=== PATIENT | female | born 1930 | race Caucasian/White ===

== ENCOUNTER 2017-11-25 15:26 | Inpatient (IN) | payer MEDICARE, BC ==
[2017-11-25 16:03] LABS: Bilirubin Negative (Negative); Blood, Urine Negative (Negative); Clarity CLEAR (Clear); Glucose, Urine (Dipstick) Negative (Negative); Leukocyte Trace (Negative); Nitrite Negative (Negative); Protein, Urine (Dipstick) Negative (Neg-Trace); Specific Gravity, Urine 1.014 (1.002-1.036); Urobilinogen 0.2 mg/dL (0.2-1.0); pH, Urine 5.5 (5.0-9.0)
[2017-11-25 16:07] LABS: Bacteria/HPF None Seen HPF (None Seen); Hyaline Casts/LPF 0-3 HYALINE CAST LPF (0-3 Hyaline); Pathc Cast-AUWi Flag 0.29 (0-2.49); RBC/HPF 0-3 HPF (0-3); Squamous Epithelial None Seen HPF (0-3); WBC/HPF 0-3 HPF (0-3)
[2017-11-25 16:16] LABS: #Basophils 0.1 thou/uL (0.0-0.2); #Eosinphils 0.3 thou/uL (0.0-0.7); #Lymphocytes 2.2 thou/uL (1.20-3.40); #Monocytes 0.4 thou/uL (0.11-0.59); #Neutrophils 2.6 thou/uL (1.40-6.50); %Eosinophils 5.1 % (0.0-10.0); %Lymphocytes 39.7 % (21.0-51.0); %Monocytes 7.3 % (0.0-10.0); Hemoglobin 9.4 g/dL (12.0-16.0); Mean Corpuscular HGB CONC 32.5 g/dL (32.0-36.0); Mean Corpuscular Hemoglobin 32.7 pg (27.0-31.0); Platelet Count 126 thou/uL (130-400); RBC Distribution Width 14.8 % (11.5-14.5); Red Blood Cell (RBC) Count 2.87 mill/uL (4.20-5.40); White Blood Cell (WBC) Count 5.6 thou/uL (4.8-10.8)
[2017-11-25 16:35] LABS: ALT (SGPT) 14 U/L (8-55); AST (SGOT) 17 U/L (5-34); Albumin 3.9 g/dL (3.4-4.8); Alkaline Phosphatase 55 U/L (40-150); Anion Gap 11 mmol/L (10-20); BUN (Urea Nitrogen) 29 mg/dL (9.8-20.1); Bilirubin, Total 0.3 mg/dL (0.2-1.2); Calc. Creatinine Clearance 0 mL/min (70-130); Calcium 9.4 mg/dL (7.8-10.44); Carbon Dioxide 22 mmol/L (23-31); Chloride 106 mmol/L (98-107); Estimated GFR-MDRD 65; Globulin 2.9 g/dL (2.4-3.5); Glucose 161 mg/dL (83-110); Potassium 3.9 mmol/L (3.5-5.1); Protein, Total 6.8 g/dL (6.0-8.3); Sodium 135 mmol/L (136-145)
[2017-11-25 16:40] LABS: CKMB 2.4 ng/mL (0-6.6); Troponin I 0.026 ng/mL (< 0.028)
--- NOTE | 2017-11-25 21:46 | RAD ---
ONE VIEW CHEST: HISTORY: Dyspnea. COMPARISON: 09/29/2015 FINDINGS: Portable upright chest shows atherosclerosis of the aorta and an enlarged cardiac silhouette. The pu lmonary vessels are within normal limits. There are patchy interstitial and alveolar opacities. The lungs are hyperinflated. No significant pleural effusion. No pneumothorax. IMPRESSION: 1. Patchy interstitial and alveolar opacities, suggesting multifocal infiltrate. 2. Atherosclerosis of the aorta. POS: PPP
[2017-11-25] MEDS ORDERED: cloNIDine 0.1 MG TAB ONE (22:08)
[2017-11-25 22:25] LABS: Troponin I 0.026 ng/mL (< 0.028)
[2017-11-25] MEDS ORDERED: Ondansetron HCl/PF 4 MG/2 ML Vial IVP PRN (22:36)
[2017-11-25] MEDS ORDERED: Milk Of Magnesia 30 ML UDCUP PO PRN (22:36)
[2017-11-25] MEDS ORDERED: Guaifenesin DM 100-10/5 ML UDCUP PO PRN (22:36)
[2017-11-25] MEDS ORDERED: Albuterol Sulfate 2.5 mg/3 ml Neb NEB PRN (22:39)
[2017-11-25] MEDS ORDERED: Azithromycin 500 MG VIAL ONE (22:44)
[2017-11-25] MEDS ORDERED: HumaLOG 300 UNITS/3 ML VIAL SC PRN (23:09)
[2017-11-25] MEDS ORDERED: Dextrose 5% in Water 1,000 ML IV PRN (23:09)
[2017-11-25] MEDS ORDERED: Dextrose 50% Abboject 50 ML SYRINGE SLOW IVP PRN (23:09)
[2017-11-25] MEDS ORDERED: hydrALAZINE 20 MG/ML VIAL SLOW IVP PRN (23:11)
[2017-11-25] MEDS ORDERED: Labetalol HCl 100 MG/20 ML VIAL SLOW IVP PRN (23:11)
[2017-11-25] MEDS ORDERED: Furosemide 40 MG/4 ML VIAL ONE (23:13)
[2017-11-26] MEDS ORDERED: Lorazepam 2 MG/ML VIAL ONE (00:03)
[2017-11-26] MEDS ORDERED: Cefepime 2 GM/10 ML SYR ONE (00:38)
[2017-11-26 03:07] VITALS: BMI 28.8
[2017-11-26] MEDS: HYDROcodone/Acetaminophen 5/325 mg Tablet PO PRN ×4 (03:21→21:46)
[2017-11-26 05:24] LABS: #Eosinphils 0.1 thou/uL (0.0-0.7); #Lymphocytes 1.5 thou/uL (1.20-3.40); #Monocytes 0.6 thou/uL (0.11-0.59); #Neutrophils 9.4 thou/uL (1.40-6.50); %Basophils 0.3 % (0.0-1.0); %Eosinophils 0.5 % (0.0-10.0); %Lymphocytes 13.2 % (21.0-51.0); %Monocytes 5.5 % (0.0-10.0); %Neutrophils 80.5 % (42.0-75.0); Hemoglobin 11.1 g/dL (12.0-16.0); Mean Corpuscular Hemoglobin 32.1 pg (27.0-31.0); Mean Corpuscular Volume 97.1 fl (81.0-99.0); Mean Platelet Volume 8.3 fL (7.4-10.4); Platelet Count 157 thou/uL (130-400); RBC Distribution Width 14.9 % (11.5-14.5); Red Blood Cell (RBC) Count 3.47 mill/uL (4.20-5.40); White Blood Cell (WBC) Count 11.6 thou/uL (4.8-10.8)
[2017-11-26 05:25] LABS: Anion Gap 12 mmol/L (10-20); BUN (Urea Nitrogen) 24 mg/dL (9.8-20.1); Calc. Creatinine Clearance 62 mL/min (70-130); Calcium 9.3 mg/dL (7.8-10.44); Carbon Dioxide 25 mmol/L (23-31); Chloride 105 mmol/L (98-107); Estimated GFR-MDRD 75; Glucose 144 mg/dL (83-110); Potassium 3.6 mmol/L (3.5-5.1); Sodium 138 mmol/L (136-145)
[2017-11-26] MEDS: Furosemide 40 MG/4 ML VIAL SLOW IVP SCH ×2 (06:16→15:44)
--- NOTE | 2017-11-26 07:00 | PDOC.EVN ---
Event Note - Event Note Event Note: pATIENT ADMITTED TO ccu FOR acute hypoxic respiratory failure. Initial critical care time 35 minutes. For more details, please refer to H and P/.
[2017-11-26] MEDS ORDERED: Non-Formulary Item 1 EACH (Biotin [Biotin] 1,000 MCG) PO SCH (09:00)
[2017-11-26] MEDS ORDERED: cloNIDine 0.1 MG TAB PO SCH (09:00)
[2017-11-26] MEDS ORDERED: Atenolol 50 MG TAB PO SCH (09:00)
[2017-11-26] MEDS: Famotidine 20 MG TAB PO SCH ×2 (09:33→20:43)
[2017-11-26] MEDS: Docusate 100 MG CAP PO SCH ×2 (09:33→20:43)
[2017-11-26] MEDS: Aspirin 325 MG TAB PO SCH (09:46)
[2017-11-26] MEDS: Losartan 25 MG TAB PO SCH ×2 (09:46→20:44)
[2017-11-26] MEDS: Isosorbide Dinitrate 5 MG TAB PO SCH ×2 (09:47→20:44)
[2017-11-26] MEDS: Folic Acid 1 MG TAB PO SCH ×2 (09:48→20:44)
[2017-11-26] MEDS: Cyanocobalamin (Vitamin B-12) 1,000 MCG TAB PO SCH (09:48)
[2017-11-26] MEDS: metFORMIN 500 MG TAB PO SCH ×2 (09:48→18:13)
[2017-11-26] MEDS: Hydroxychloroquine Sulfate 200 MG TAB PO SCH ×2 (10:13→20:45)
--- NOTE | 2017-11-26 11:33 | CON ---
DATE OF CONSULTATION: 11/26/2017 REASON FOR CONSULTATION: Acute respiratory failure, related to congestive heart failure. HISTORY OF PRESENT ILLNESS: The patient is an 87-year-old female, who was admitted last night with acute respiratory failure, related to cardiogenic pulmonary edema. According to the notes from the ER, she had been experiencing fatigue and weakness for about 1 week. PAST MEDICAL HISTORY: 1. Type 2 diabetes mellitus. 2. Hypertension. 3. Congestive heart failure, systolic with EF documented about 45% back [place] [address] Chauhan. 4. Arthritis. 5. Hypothyroidism. 6. Coronary artery disease. 7. Gastroesophageal reflux. 8. Rheumatoid arthritis. 9. Glaucoma. 10. Esophageal stricture. PAST SURGICAL HISTORY: Cholecystectomy, eye surgery, cardiac catheterization, appendectomy, hysterectomy, x2, EGD, colonoscopy, esophageal dilatation, rectocele repair. ALLERGIES: IODINE. SOCIAL HISTORY: Lives in a longterm. Does not smoke. Does not consume alcohol. FAMILY MEDICAL HISTORY: Remarkable for coronary artery disease, prostate cancer , liver disease. MEDICATIONS: Prior to admission, clonidine 0.1 mg b.i.d., pramipexole 0.25 mg every evening, isosorbide dinitrate 10 mg b.i.d., vitamin B12 500 mcg daily, aspirin 325 mg daily, Lasix 40 mg daily, Zocor 20 mg nightly, losartan 50 mg twice daily, hydroxychloroquine 200 mg b.i.d., metformin 500 mg b.i.d., atenolol 25 mg daily, folate 1 mg b.i.d., methotrexate 15 mg every 7 days, Biotin 1000 mcg daily, cholecalciferol 5000 mg daily. REVIEW OF SYSTEMS: Otherwise negative. PHYSICAL EXAMINATION: VITAL SIGNS: Temperature 98.5, pulse 72, blood pressure 159/52, O2 sat 95%, respiratory rate in the high 20s and low 30s. GENERAL: She is awake, alert. Took the BiPAP off; she seems to be breathing comfortably. HEENT EXAM: Pupils react. Sclerae icteric. Oropharynx clear. NECK: No JVD. LUNGS: A few crackles in both bases. CARDIAC: S1 and S2 regular, no murmur. ABDOMEN: Soft, nontender, nondistended. EXTREMITIES: No clubbing, cyanosis, or edema. LABORATORY DATA: White blood cell count 11.6, hematocrit 33.7, platelet count 157. Sodium 130, potassium 3.6, chloride 105, CO2 of 25, BUN 24, creatinine 0.7 , glucose 144. BNP 852. Chest x-ray showed perihilar edema, small pleural effusions and confluence of flow. ASSESSMENT: 1. Congestive heart failure - likely acute systolic. 2. Acute respiratory failure, requiring mechanical ventilation. 3. Hypertension. PLAN: 1. I would discontinue her antibiotics as this does not appear to be pneumonia. 2. Restart her antihypertensive therapy. 3. Try to hold BiPAP. 4. Continue diuresis. 5. May be able to transfer out of the CCU by early this afternoon. 70 min. time was spent on this patient. Of that time, >50% was spent with the patient and/or on the patients hospital unit [facility]
--- NOTE | 2017-11-26 14:15 | HP ---
PRIMARY CARE PHYSICIAN: Cesilia Crystal M.D. PRESENTING COMPLAINT: Shortness of breath. HISTORY OF PRESENT ILLNESS: Ms. Guadalupe Garcia is an 87-year-old female with a past medical history of rheumatoid arthritis, diabetes mellitus, hypertension , chronic anemia, hyperlipidemia, CHF, hypothyroidism and basal cell carcinoma, status post excision, who presented to the emergency room with a 1-week history of malaise, dizziness, cough, and marked shortness of breath. She said her symptoms have progressively gotten worse and decided to come to the hospital today due to persistence of the shortness of breath. She has no sputum production. She denies fever or chills, chest pain. She has no abdominal or urinary symptoms. At the emergency room, her oxygen saturations were in the mid 80s and she was started on oxygen supplementation, which improved her O2 saturation to about 92%. Her labs showed normal WBC, but showed thrombocytopenia of 126. Serum chemistry was largely unremarkable. Lactic acid was 1.9. Initial troponin was 0.026. BNP was 852, markedly increased from BNP taken in 02/2017, which was 238. Urinalysis was unremarkable. EKG shows no signs of acute ischemia. Chest x-ray showed patchy interstitial and alveolar opacities suggesting multifocal infiltrates, also showed atherosclerosis of the aorta. She was then diagnosed with community-acquired pneumonia in the emergency room and started on azithromycin. PAST MEDICAL HISTORY: As stated in the HPI. PAST SURGICAL HISTORY: Basal cell carcinoma removal. FAMILY HISTORY: Reviewed and noncontributory. SOCIAL HISTORY: Does not smoke cigarettes, drink alcohol or use illicit drugs. ALLERGIES: IODINE CONTRAST. CODE STATUS: Family reports that advanced documentation in home and they would like to defer code status until they go home to get the documents. HOME MEDICATIONS: Reviewed. REVIEW OF SYSTEMS: A 12-point review of systems conducted and negative except as stated in HPI. PHYSICAL EXAMINATION: VITAL SIGNS: Blood pressure 166/62, pulse rate 53, respiratory rate 18, temperature 98.1, oxygen saturation 94% on 2 liters of oxygen. GENERAL: Not in acute distress, lying comfortably in bed. HEENT: Normocephalic, atraumatic. Not pale, anicteric. Moist mucous membranes. PERRLA. EOMI. NECK: Supple, no JVD. Full range of movement. RESPIRATORY: Shows coarse breath sounds bilaterally with reduced air entry in bilateral lung carrasco. No wheezes are appreciated. CARDIOVASCULAR: S1, S2 only. Regular rate and rhythm. No murmurs, rubs or gallops. ABDOMEN: Soft, nontender, nondistended. Hernia appreciated with no signs of obstruction or strangulation. Bowel sounds normoactive. No hepatosplenomegaly. MUSCULOSKELETAL: No edema. Full range of movements of all extremities. NEUROLOGIC: Alert and well oriented. No focal deficits. SKIN: Warm, dry, well perfused. Varicose veins, bilateral lower extremities. PSYCHIATRIC: Normal mood and affect. LABORATORY DATA: Significant labs are stated in HPI. IMAGING: Chest x-ray: Multifocal infiltrates, bilateral lungs. EKG: No signs of acute ischemia, shows complete left bundle branch block. ASSESSMENT AND PLAN: 1. Community-acquired pneumonia with possible acute respiratory failure. The patient has been started on oxygen supplementation. Blood cultures have been collected. We will start on IV levofloxacin and monitor oxygen saturations closely as well as vital signs. 2. Congestive heart failure. Unclear if she has diastolic or systolic heart failure. She does not seem to be in florid exacerbation for now, but we will give one dose of IV furosemide tonight and monitor response in the a.m. She might benefit from a TTE while in the hospital. 3. Hypothyroidism. We will resume home medication when confirmed. 4. Diabetes mellitus: Controlled. We will place on sliding scale insulin, diabetic diet, fingerstick glucose before meals and at bedtime, and hypoglycemia protocol. 5. Rheumatoid arthritis, stable, not in acute flare. We will resume home medications. 6. Hyperlipidemia. We will resume home medication. 7. Chronic anemia. We will monitor and transfuse for hemoglobin less than 7. We will also trend troponin and place her on p.r.n. IV hydralazine and labetalol , nebulizer therapies. 8. Thrombocytopenia. No signs of active bleeding. We will avoid heparin based products and placed on sequential compression devices while in hospital. DORINDA
--- NOTE | 2017-11-26 16:13 | PDOC.PN ---
- Subjective Encounter Start Date: 11/26/17 Encounter Start Time: 15:55 Subjective: f/u for acute resp failure due to CHF. Feeling much better today and no SOB -: Diuresing with IV Lasix. No new complaints. - Objective MAR Reviewed: Yes Vital Signs & Weight: Vital Signs (12 hours) Temp Pulse Resp BP Pulse Ox 11/26/17 15:00 98.7 F 11/26/17 12:00 98.9 F 11/26/17 09:48 65 11/26/17 09:46 126/51 L 11/26/17 08:57 96 11/26/17 08:00 97.9 F 65 20 100 Weight Weight 162 lb 14.746 oz Most Recent Monitor Data Heart Rate from ECG 63 NIBP 125/39 NIBP BP-Mean 53 Respiration from ECG 24 SpO2 100 I&O: 11/25/17 11/26/17 11/27/17 06:59 06:59 06:59 Intake Total 360 Output Total 500 601 Balance -500 -241 Result Diagrams: 11/26/17 04:25 11/26/17 04:25 Additional Labs: Accuchecks 11/26/17 11:29 POC Glucose 203 H Microbiology 11/25/17 22:18 Venous blood - Right Arm Blood Culture - Preliminary Specimen has been received and culture in progress. No Growth to date. 11/25/17 22:18 Venous blood - Left Arm Blood Culture - Preliminary Specimen has been received and culture in progress. No Growth to date. Laboratory Tests 11/25/17 11/25/17 11/25/17 16:02 21:52 21:52 WBC 5.6 Hgb 9.4 L Lactic Acid 1.9 B-Natriuretic Peptide 852.8 H 11/26/17 04:25 WBC Hgb Lactic Acid B-Natriuretic Peptide 1397.4 H Radiology Reviewed by me: Yes (PCXR - bilat pulm edema) EKG Reviewed by me: Yes (Tele - SR) Phys Exam - Physical Examination Constitutional: NAD HEENT: PERRLA, oral pharynx no lesions Neck: no nodes, no JVD, supple basilar crackles Respiratory: no wheezing, no rhonchi Cardiovascular: RRR, no significant murmur Gastrointestinal: soft, non-tender, no distention, positive bowel sounds mild edema of bilat LE's Musculoskeletal: pulses present, edema present Neurological: non-focal, normal sensation, moves all 4 limbs Psychiatric: normal affect, A&O x 3 Skin: normal turgor, cap refill <2 seconds Dx/Plan (1) Acute respiratory failure with hypoxia Code(s): J96.01 - ACUTE RESPIRATORY FAILURE WITH HYPOXIA Status: Acute Comment: s/p BiPAP NIMV, continue O2 via NC, wean off O2 as clinically tolerated (2) Acute exacerbation of CHF (congestive heart failure) Code(s): I50.9 - HEART FAILURE, UNSPECIFIED Status: Acute Qualifiers: Heart failure type: unspecified Qualified Code(s): I50.9 - Heart failure, unspecified Comment: Continue Lasix 40mg IV q12h, 2D echo pending to ascertain EF (3) DM II (diabetes mellitus, type II), controlled Code(s): E11.9 - TYPE 2 DIABETES MELLITUS WITHOUT COMPLICATIONS Status: Chronic Comment: Continue Metformin daily, ISS, ADA (4) Macrocytic anemia Code(s): D53.9 - NUTRITIONAL ANEMIA, UNSPECIFIED Status: Chronic Comment: Stable currently, continue serial monitoring, no evidence of acute blood loss - Plan plan discussed w/ family, PT/OT, public health social worker, out of bed/ambulate Stable currently -: Continue Lasix 40mg IV q12h -: 2D Echo pending -: Continue ASA 325mg daily -: Continue Lipitor 10mg HS * AM lab: BMP, CBC * Transfer to Telemetry
[2017-11-26] MEDS ORDERED: Furosemide 20 MG/2 ML VIAL SLOW IVP SCH (19:30)
[2017-11-26] MEDS: Atorvastatin Calcium 10 MG TAB PO SCH (20:43)
[2017-11-26] MEDS: Pramipexole Di-HCl 0.25 MG TAB PO SCH (20:44)
[2017-11-26] MEDS: cloNIDine 0.1 MG TAB PO SCH (20:58)
--- NOTE | 2017-11-27 00:49 | CON ---
DATE OF CONSULTATION: 11/26/2017 PRIMARY DRILLER AND REAMER: Dr. Edgardo Chauhan. REASON FOR CONSULTATION: Congestive heart failure, systolic, acute on chronic. HISTORY OF PRESENT ILLNESS: Ms. Garcia is a very pleasant 87-year-old woman, patient of Dr. Edgardo pompa. She has a long history of congestive heart failure. She came to the hospital last night with di fficulty breathing and was found to be in congestive heart failure. [facility] The patient is feeling somewhat better now, but still was not breathing normally. The patient did have indeterminate troponin level as well as a high BNP. Chest x-ray shows congestive heart failure. PAST MEDICAL HISTORY: History of hypertensive heart disease, history of congestive heart failure, mi nimal coronary artery disease with previous catheterization. SOCIAL HISTORY: No alcohol, tobacco, or smoking. ALLERGIES: IODINE. HOME MEDICATIONS: Include, 1. Isosorbide. 2. Furosemide. 3. Losartan. 4. Metformin. 5. Atenolol 25 mg a day. 6. Biotin. 7. Aspirin. 8. Clonidine. REVIEW OF SYSTEMS: Constitutional: No significant weight gain or loss. Vision: No changes. Heari ng: No changes. Pulmonary: Positive for shortness of breath. Cardiac: No chest pain. Gastrointe stinal: There is no nausea, vomiting, diarrhea. Skin: No rashes. Neurologic: No unilateral weakn ess or numbness. Psychiatric: No unusual depression or anxiety. Hematologic: No unusual bruising. Genitourinary: No burning with urination. PHYSICAL EXAMINATION: GENERAL: This is a pleasant elderly woman, states she is still not breathing normally. VITAL SIGNS: Blood pressure is 135/42, pulse 61 regular. EYES: Sclerae nonicteric. MOUTH: Mucous membranes moist. NECK: Supple, no lymphadenopathy. LUNGS: Bibasilar rales. CARDIOVASCULAR: Normal S1, normal S2. I do not hear murmur, rub, or gallop. ABDOMEN: Soft, nontender. EXTREMITIES: No clubbing or cyanosis. There is mild peripheral edema. SKIN: Warm and dry. PERTINENT LABORATORY AND X-RAY FINDINGS: Hemoglobin is 11.1. BNP 1397. Potassium is 3.6. Troponin 0.026. Chest x-ray shows increased interstitial markings compatible with congestive heart f ailure. Echocardiogram ejection fraction of 25%-30%. ASSESSMENT: 1. Congestive heart failure, systolic, acute on chronic. 2. Relatively low heart rate. 3. EKG revealed a left bundle branch block. PLAN: 1. We will change from atenolol to carvedilol. 2. Could consider biventricular pacing which may increase left ventricular function. 3. We will give an extra dose of Lasix tonight. 4. We will reduce clonidine that is likely reducing the heart rate and I believe the beta-cristy do se could be maximized. It is right now, we cannot give much beta-cristy due to low heart rate. Dr. Chauhan resume patient's care tomorrow.
[2017-11-27 04:32] LABS: #Lymphocytes 1.9 thou/uL (1.20-3.40); #Neutrophils 5.4 thou/uL (1.40-6.50); %Basophils 0.4 % (0.0-1.0); %Eosinophils 0.4 % (0.0-10.0); %Lymphocytes 22.9 % (21.0-51.0); %Monocytes 11.3 % (0.0-10.0); %Neutrophils 64.9 % (42.0-75.0); Hemoglobin 9.5 g/dL (12.0-16.0); Mean Corpuscular HGB CONC 32.8 g/dL (32.0-36.0); Mean Corpuscular Volume 97.4 fl (81.0-99.0); Mean Platelet Volume 8.1 fL (7.4-10.4); Platelet Count 120 thou/uL (130-400); RBC Distribution Width 15.1 % (11.5-14.5); Red Blood Cell (RBC) Count 2.98 mill/uL (4.20-5.40); White Blood Cell (WBC) Count 8.3 thou/uL (4.8-10.8)
[2017-11-27 04:53] LABS: Anion Gap 13 mmol/L (10-20); BUN (Urea Nitrogen) 27 mg/dL (9.8-20.1); Calc. Creatinine Clearance 47 mL/min (70-130); Calcium 8.6 mg/dL (7.8-10.44); Carbon Dioxide 25 mmol/L (23-31); Chloride 104 mmol/L (98-107); Estimated GFR-MDRD 55; Glucose 138 mg/dL (83-110); Potassium 3.3 mmol/L (3.5-5.1); Sodium 139 mmol/L (136-145)
[2017-11-27 05:00] LABS: Troponin I 0.382 ng/mL (< 0.028)
[2017-11-27] MEDS: Furosemide 40 MG/4 ML VIAL SLOW IVP SCH (06:40)
[2017-11-27] MEDS: Acetaminophen 325 MG TAB PO PRN ×2 (10:15→14:17)
[2017-11-27] MEDS: Enoxaparin Sodium 80 MG/0.8 ML SYRINGE SC SCH ×2 (10:23→20:16)
[2017-11-27] MEDS: cloNIDine 0.1 MG TAB PO SCH ×2 (10:24→20:18)
[2017-11-27] MEDS: Losartan 25 MG TAB PO SCH ×2 (10:25→20:19)
[2017-11-27] MEDS: Hydroxychloroquine Sulfate 200 MG TAB PO SCH ×2 (10:26→20:17)
[2017-11-27] MEDS: metFORMIN 500 MG TAB PO SCH ×2 (10:27→17:17)
[2017-11-27] MEDS: Isosorbide Dinitrate 5 MG TAB PO SCH ×2 (10:27→21:28)
[2017-11-27] MEDS: Cyanocobalamin (Vitamin B-12) 1,000 MCG TAB PO SCH (10:27)
[2017-11-27] MEDS: Carvedilol 3.125 MG TAB PO SCH ×2 (10:27→17:17)
[2017-11-27] MEDS: Aspirin 325 MG TAB PO SCH (10:28)
[2017-11-27] MEDS: Docusate 100 MG CAP PO SCH ×2 (10:28→20:21)
[2017-11-27] MEDS: Folic Acid 1 MG TAB PO SCH ×2 (10:28→20:17)
[2017-11-27] MEDS: Famotidine 20 MG TAB PO SCH ×2 (10:29→20:17)
--- NOTE | 2017-11-27 11:59 | PRG ---
DATE OF SERVICE: 11/27/2017 SUBJECTIVE: The patient is complaining of a cough. Otherwise, feels better. PHYSICAL EXAMINATION: VITAL SIGNS: Temperature 98.6, pulse 74, blood pressure 172/64, O2 sat 95%, respiratory rate 16. HEENT: Unremarkable. NECK: No adenopathy or JVD. CHEST: Clear. CARDIAC: S1 and S2 regular. ABDOMEN: Soft. EXTREMITIES: No edema. ASSESSMENT: 1. Congestive heart failure. 2. Low heart rate. 3. Status post acute respiratory failure, which required BiPAP. 4. EF 25%-30% on echo. PLAN: 1. She needs to get up in a chair. 2. Robitussin as needed for cough. 3. Continue diuresis. 4. Further input per Cardiology.
--- NOTE | 2017-11-27 12:26 | PDOC.PN ---
- Subjective Encounter Start Date: 11/27/17 Encounter Start Time: 12:20 Subjective: f/u for acute CHF and resp failure currently on O2 NC and Lasix IV -: Feels better overall and less SOB, some residual dry cough. Feels weak -: and not getting out of bed. - Objective MAR Reviewed: Yes Vital Signs & Weight: Vital Signs (12 hours) Temp Pulse Resp BP BP Pulse Ox 11/27/17 11:38 98.7 F 61 18 139/68 94 L 11/27/17 10:24 172/64 H 11/27/17 08:00 98.6 F 74 16 172/64 H 95 Weight Weight 158 lb 11.725 oz Most Recent Monitor Data Heart Rate from ECG 54 NIBP 116/30 NIBP BP-Mean 61 Respiration from ECG 23 SpO2 100 I&O: 11/26/17 11/27/17 11/28/17 06:59 06:59 06:59 Intake Total 600 Output Total 500 606 Balance -500 -6 Result Diagrams: 11/27/17 04:23 11/27/17 04:23 Additional Labs: Accuchecks 11/26/17 11/26/17 21:04 17:08 POC Glucose 149 H 158 H Microbiology 11/25/17 22:18 Venous blood - Right Arm Blood Culture - Preliminary Specimen has been received and culture in progress. No Growth to date. 11/25/17 22:18 Venous blood - Left Arm Blood Culture - Preliminary Specimen has been received and culture in progress. No Growth to date. Laboratory Tests 11/25/17 11/25/17 11/25/17 16:02 16:02 21:52 WBC 5.6 Hgb 9.4 L Lactic Acid Troponin I 0.026 0.026 B-Natriuretic Peptide 11/25/17 11/25/17 11/26/17 21:52 21:52 04:25 WBC Hgb Lactic Acid 1.9 Troponin I B-Natriuretic Peptide 852.8 H 1397.4 H 11/27/17 04:23 WBC Hgb Lactic Acid Troponin I 0.382 H* B-Natriuretic Peptide Radiology Reviewed by me: Yes (2D echo - EF 25-30%, mod TR, diast dysfxn) EKG Reviewed by me: Yes (Tele - SR in 80's, short run A-fib) Phys Exam - Physical Examination Constitutional: NAD alert, talkative HEENT: PERRLA, oral pharynx no lesions Neck: no JVD, supple bibasilar crackles, diminished in bases Respiratory: no wheezing, no rales I/ DEDRA in RUSB Cardiovascular: RRR Gastrointestinal: soft, non-tender, no distention, positive bowel sounds mild LE edema Musculoskeletal: pulses present Neurological: non-focal, normal sensation, moves all 4 limbs Psychiatric: A&O x 3 Skin: no rash, normal turgor, cap refill <2 seconds Dx/Plan (1) Acute respiratory failure with hypoxia Code(s): J96.01 - ACUTE RESPIRATORY FAILURE WITH HYPOXIA Status: Acute Comment: s/p BiPAP NIMV, continue O2 via NC, wean off O2 as clinically tolerated , overall improved (2) Acute exacerbation of CHF (congestive heart failure) Code(s): I50.9 - HEART FAILURE, UNSPECIFIED Status: Acute Qualifiers: Heart failure type: unspecified Qualified Code(s): I50.9 - Heart failure, unspecified Comment: Continue Lasix 40mg IV daily, EF 25%, ? AICD or pacer vs palliative measures, family leaning toward palliative options (3) DM II (diabetes mellitus, type II), controlled Code(s): E11.9 - TYPE 2 DIABETES MELLITUS WITHOUT COMPLICATIONS Status: Chronic Comment: Continue Metformin daily, ISS, ADA (4) Macrocytic anemia Code(s): D53.9 - NUTRITIONAL ANEMIA, UNSPECIFIED Status: Chronic Comment: Stable currently, continue serial monitoring, no evidence of acute blood loss (5) Hypokalemia Code(s): E87.6 - HYPOKALEMIA Status: Acute Comment: KCL 40meq po BID, repeat K+ level in am - Plan plan discussed w/ family, PT/OT, 7th grade social studies teacher, out of bed/ambulate, DVT proph w/SCDs Stable overall -: Continue ASA and Coreg -: Await Cardiology to discuss options regaring PM/AICD, family leaning toward -: Palliative measures -: PT for mobilization * Decrease Lasix 40mg IV daily * D/C Lovenox in 24h * Wean O2 as clincally tolerated * AM lab: BMP
[2017-11-27] MEDS ORDERED: Potassium Chloride 20 MEQ TAB PO SCH ×2 (12:45→13:00)
--- NOTE | 2017-11-27 14:51 | PDOC.CTH ---
<Naima Meredith - Last Filed: 11/27/17 15:21> Cardiology Progress Note - Subjective The pt seen and examined. No overnight events. No cardiac complaints. She has dry cough - Objective Vital Signs Temp Pulse Resp BP BP Pulse Ox 11/27/17 11:38 98.7 F 61 18 139/68 94 L 11/27/17 10:24 172/64 H 11/27/17 08:25 98.7 F 61 18 95 11/27/17 08:00 98.6 F 74 16 172/64 H 95 Weight 158 lb 11.725 oz 11/26/17 11/27/17 11/28/17 06:59 06:59 06:59 Intake Total 600 390 Output Total 500 606 Balance -500 -6 390 - Physical Examination General/Neuro: alert & oriented x3 Neck: no JVD present Lungs: CTA (diminished at bases) Heart: other: (irregular) Abdomen: soft Extremities: other: (No edema) - Labs Result Diagrams: 11/27/17 04:23 11/27/17 04:23 Troponin/CKMB CK-MB (CK-2) 2.4 ng/mL (0-6.6) 11/25/17 16:02 Troponin I 0.382 ng/mL (< 0.028) H* 11/27/17 04:23 - Assessment/Plan 1. New onset Afib - Afib with HR 50-60s. On Coreg and Lovenox BID. 2. Acute on chronic systolic HF - Echo on 11/26/17 showed EF 25-30% (55% in 2016), mild-mod LAE, mild MR, mild AR, mild-mod TR, and mod elevated PAP. Improving with Lasix IV, Losartan. 3. Acute resp. failure - stable with 2LNC; managed by PCP and general machinist 4. HTN - stable 5. mild CAD - stable; cont. to monitor on tele MAR reviewed Review of Systems - Review of Systems Constitutional: reports: no symptoms reported EENTM: reports: no symptoms reported Respiratory: reports: no symptoms reported Cardiac (ROS): reports: no symptoms reported ABD/GI: reports: no symptoms reported : reports: no symptoms reported Musculoskeletal: reports: no symptoms reported <Taran Chauhan - Last Filed: 11/27/17 15:51> Cardiology Progress Note - Objective Vital Signs Temp Pulse Pulse Pulse Resp BP BP 11/27/17 15:09 65 61 137/56 L 11/27/17 11:38 98.7 F 61 18 11/27/17 10:24 172/64 H 11/27/17 08:25 98.7 F 61 18 11/27/17 08:00 98.6 F 74 16 BP BP Pulse Ox Pulse Ox Pulse Ox 11/27/17 15:09 149/62 H 97 96 11/27/17 11:38 139/68 94 L 11/27/17 10:24 11/27/17 08:25 95 11/27/17 08:00 172/64 H 95 Weight 158 lb 11.725 oz 11/26/17 11/27/17 11/28/17 06:59 06:59 06:59 Intake Total 600 390 Output Total 500 606 Balance -500 -6 390 - Labs Result Diagrams: 11/27/17 04:23 11/27/17 04:23 Troponin/CKMB CK-MB (CK-2) 2.4 ng/mL (0-6.6) 11/25/17 16:02 Troponin I 0.382 ng/mL (< 0.028) H* 11/27/17 04:23 - Assessment/Plan pt. seen and eval. by me. New onset acute on chronic systolic CHF. EF significantly decreased from prior echo. She has developed atrial fibrillation and this may also have contributed to the volume overload and CHF. She has been receiving Cimzia for her arthritis.She did have some swelling after the injections and this may also have been a contributing factor. At this time I would give OAC,s and control the heart rate. Continue diuretics. I agree with the A/P by the GRINDING OPERATOR. Chest clear. Irreg/irreg. rhythm. No edema.
[2017-11-27] MEDS: Potassium Chloride 20 MEQ TAB PO SCH (17:16)
[2017-11-27] MEDS: Pramipexole Di-HCl 0.25 MG TAB PO SCH (20:18)
[2017-11-27] MEDS: Atorvastatin Calcium 10 MG TAB PO SCH (20:18)
[2017-11-28] MEDS: Acetaminophen 325 MG TAB PO PRN ×2 (00:02→08:37)
[2017-11-28 07:57] LABS: Anion Gap 10 mmol/L (10-20); BUN (Urea Nitrogen) 28 mg/dL (9.8-20.1); Calc. Creatinine Clearance 56 mL/min (70-130); Calcium 8.5 mg/dL (7.8-10.44); Carbon Dioxide 24 mmol/L (23-31); Chloride 107 mmol/L (98-107); Estimated GFR-MDRD 69; Glucose 102 mg/dL (83-110); Sodium 137 mmol/L (136-145)
[2017-11-28] MEDS: Enoxaparin Sodium 80 MG/0.8 ML SYRINGE SC SCH (08:34)
[2017-11-28] MEDS: Hydroxychloroquine Sulfate 200 MG TAB PO SCH ×2 (08:35→21:21)
[2017-11-28] MEDS: Isosorbide Dinitrate 5 MG TAB PO SCH ×2 (08:36→21:20)
[2017-11-28] MEDS: Famotidine 20 MG TAB PO SCH ×2 (08:36→21:21)
[2017-11-28] MEDS: Docusate 100 MG CAP PO SCH ×2 (08:37→21:21)
[2017-11-28] MEDS: Folic Acid 1 MG TAB PO SCH ×2 (08:38→21:21)
[2017-11-28] MEDS: metFORMIN 500 MG TAB PO SCH ×2 (08:38→17:07)
[2017-11-28] MEDS: Potassium Chloride 20 MEQ TAB PO SCH ×2 (08:38→17:07)
[2017-11-28] MEDS: cloNIDine 0.1 MG TAB PO SCH ×2 (08:38→21:20)
[2017-11-28] MEDS: Losartan 25 MG TAB PO SCH ×2 (08:39→21:21)
[2017-11-28] MEDS: Carvedilol 3.125 MG TAB PO SCH ×2 (08:40→17:07)
[2017-11-28] MEDS: Cyanocobalamin (Vitamin B-12) 1,000 MCG TAB PO SCH (08:40)
[2017-11-28] MEDS ORDERED: Furosemide 40 MG/4 ML VIAL SLOW IVP SCH (09:00)
--- NOTE | 2017-11-28 09:09 | PRG ---
DATE OF SERVICE: 11/28/2017 This patient is doing better. She is sitting up today. She said she walked some yesterday. PHYSICAL EXAMINATION: VITAL SIGNS: Temperature 98.6 with a T-max of 100.1, pulse 64, blood pressure 135/63, O2 sat 98% on 2 liters. HEENT: Unremarkable. NECK: No JVD. LUNGS: Clear without wheezing. CARDIOVASCULAR: S1, S2 regular. ABDOMEN: Soft. EXTREMITIES: No edema. LABORATORY DATA: No labs were done today. ASSESSMENT: 1. Congestive heart failure. 2. Status post acute respiratory failure related to that. 3. Low heart rate. 4. EF 25-30%. PLAN: 1. Discontinue oxygen. 2. I have noticed that she is on high dose anticoagulation. This was started by the Hospitalist. I do not see a clearcut indication for that unless there is something that I am missing. 3. No further pulmonary recommendations.
--- NOTE | 2017-11-28 13:39 | PDOC.CTH ---
<Naima Meredith - Last Filed: 11/28/17 13:34> Cardiology Progress Note - Subjective The pt seen and examined. No overnight events. No cardiac complaints. She coughs every time she drinks and eats. She stated she has long hx of Benign esophageal stricture and s/p Esophageal dilation a few years ago. She walked around the unit with PTs w/o difficulties. - Objective Vital Signs Temp Pulse Resp BP BP Pulse Ox 11/28/17 12:00 97.4 F L 54 L 18 127/53 L 96 11/28/17 08:38 135/63 11/28/17 08:00 98.6 F 64 18 135/63 98 Weight 158 lb 11.725 oz 11/27/17 11/28/17 11/29/17 06:59 06:59 06:59 Intake Total 600 390 Output Total 606 Balance -6 390 - Physical Examination General/Neuro: alert & oriented x3 Neck: no JVD present Lungs: CTA Heart: other: (irregular) Abdomen: soft Extremities: other: (No edema) - Telemetry Telemetry Rhythm: Afib HR 50-60s - Labs Result Diagrams: 11/27/17 04:23 11/28/17 06:30 Troponin/CKMB CK-MB (CK-2) 2.4 ng/mL (0-6.6) 11/25/17 16:02 Troponin I 0.382 ng/mL (< 0.028) H* 11/27/17 04:23 - Assessment/Plan 1. New onset Afib - Afib with HR 50-60s. On Coreg. Changed Lovenox BID to Eliquis 5mg BID. 2. Acute on chronic systolic HF - Echo on 11/26/17 showed EF 25-30% (55% in 2016), mild-mod LAE, mild MR, mild AR, mild-mod TR, and mod elevated PAP. stable with Lasix IV, bblocker, and Losartan. Change Lasix from IV to Po daily. The pt will d/c with LifeVest. 3. Acute resp. failure - stable with 2LNC; managed by PCP and heading maker 4. HTN - stable 5. mild CAD - stable; cont. to monitor on tele 6. Hx of Benign esophageal stricture and s/p Esophageal dilation a few years ago - instructed to sit up straight for eating and drinking. Need Speech eval? MAR reviewed * EF significantly decreased from prior echo. She has developed atrial fibrillation and this may also have contributed to the volume overload and CHF. She has been receiving Cimzia for her arthritis.She did have some swelling after the injections and this may also have been a contributing factor. * The pt will be d/[facility] home with LifeVest and Echo within 1 month. Per the pt and family, the pt refused AICD placement at this time. Review of Systems - Review of Systems Constitutional: reports: no symptoms reported EENTM: reports: no symptoms reported Respiratory: reports: no symptoms reported Cardiac (ROS): reports: no symptoms reported ABD/GI: reports: no symptoms reported : reports: no symptoms reported <Taran Chauhan - Last Filed: 11/28/17 15:57> Cardiology Progress Note - Objective Vital Signs Temp Pulse Resp BP BP Pulse Ox 11/28/17 12:00 97.4 F L 54 L 18 127/53 L 96 11/28/17 08:38 135/63 11/28/17 08:00 98.6 F 64 18 135/63 98 Weight 158 lb 11.725 oz 11/27/17 11/28/17 11/29/17 06:59 06:59 06:59 Intake Total 600 390 Output Total 606 Balance -6 390 - Labs Result Diagrams: 11/27/17 04:23 11/28/17 06:30 Troponin/CKMB CK-MB (CK-2) 2.4 ng/mL (0-6.6) 11/25/17 16:02 Troponin I 0.382 ng/mL (< 0.028) H* 11/27/17 04:23 - Assessment/Plan pt. seen and eval. by me. i agree with the A/P by the ANY COMMODITY BUYER. Repeat echo in 4-6 weeks. Continue medications for CHF. Continue OAC.
--- NOTE | 2017-11-28 14:34 | PDOC.PN ---
- Subjective Encounter Start Date: 11/28/17 Encounter Start Time: 14:32 Subjective: feels much better. working w CR w/o SOB -: care discussed w son at bedside - Objective MAR Reviewed: Yes Vital Signs & Weight: Vital Signs (12 hours) Temp Pulse Resp BP BP Pulse Ox 11/28/17 12:00 97.4 F L 54 L 18 127/53 L 96 11/28/17 08:38 135/63 11/28/17 08:00 98.6 F 64 18 135/63 98 Weight Weight 158 lb 11.725 oz Most Recent Monitor Data Heart Rate from ECG 54 NIBP 116/30 NIBP BP-Mean 61 Respiration from ECG 23 SpO2 100 I&O: 11/27/17 11/28/17 11/29/17 06:59 06:59 06:59 Intake Total 600 390 Output Total 606 Balance -6 390 Result Diagrams: 11/27/17 04:23 11/28/17 06:30 Additional Labs: Accuchecks 11/28/17 11/28/17 11/27/17 11:15 05:54 20:52 POC Glucose 140 H 103 176 H 11/27/17 11/27/17 17:36 15:07 POC Glucose 141 H 122 H Microbiology 11/25/17 22:18 Venous blood - Right Arm Blood Culture - Preliminary NO GROWTH AT 48 HOURS 11/25/17 22:18 Venous blood - Left Arm Blood Culture - Preliminary NO GROWTH AT 48 HOURS Laboratory Tests 11/25/17 11/26/17 11/27/17 16:02 04:25 04:23 Hgb 9.4 L 11.1 L 9.5 L Plt Count 126 L 157 120 L Phys Exam - Physical Examination Constitutional: NAD sitting up in bed HEENT: PERRLA, moist MMs, sclera anicteric, oral pharynx no lesions, 2+ tonsils Neck: no JVD Respiratory: no wheezing, no rales, no rhonchi, clear to auscultation bilateral Cardiovascular: irregular Gastrointestinal: soft, non-tender, no distention, positive bowel sounds Musculoskeletal: no edema, pulses present Neurological: non-focal, normal sensation, moves all 4 limbs Psychiatric: normal affect, A&O x 3 Skin: no rash Dx/Plan (1) New onset a-fib Code(s): I48.91 - UNSPECIFIED ATRIAL FIBRILLATION Status: Acute Comment: Rate controlled on Coreg.On Anticoagulation per cardiology (2) Acute exacerbation of CHF (congestive heart failure) Code(s): I50.9 - HEART FAILURE, UNSPECIFIED Status: Acute Qualifiers: Heart failure type: unspecified Qualified Code(s): I50.9 - Heart failure, unspecified Comment: on Lasix 40mg IV daily, EF 25%, ? AICD or pacer vs palliative measures , family leaning toward palliative options (3) Acute respiratory failure with hypoxia Code(s): J96.01 - ACUTE RESPIRATORY FAILURE WITH HYPOXIA Status: Acute Comment: s/p BiPAP NIMV, continue O2 via NC, wean off O2 as clinically tolerated , overall improved (4) Hypokalemia Code(s): E87.6 - HYPOKALEMIA Status: Resolved Comment: KCL 40meq po BID, repeat K+ level in am (5) Cardiomyopathy Code(s): I42.9 - CARDIOMYOPATHY, UNSPECIFIED Status: Chronic Comment: New diagnosis. Will need LifeVest per cardiology.Refusing AICD (6) DM II (diabetes mellitus, type II), controlled Code(s): E11.9 - TYPE 2 DIABETES MELLITUS WITHOUT COMPLICATIONS Status: Chronic Comment: Continue Metformin daily, ISS, ADA (7) Macrocytic anemia Code(s): D53.9 - NUTRITIONAL ANEMIA, UNSPECIFIED Status: Chronic Comment: Stable currently, continue serial monitoring, no evidence of acute blood loss - Plan plan discussed w/ family, PT/OT, respiratory therapy, incentive spirometry, out of bed/ambulate, DVT proph w/SCDs Changed to PO lasix and PO A per cardiology.appreciate input. -: wean off O2 as tolearted.PCCM following-appreciate input. -: continue CR. Family wants HH Vs OP rehab .declining SNIF etc -: monitor labs in am.jovan CANELA home tomorrow if lifeVest set up done * . Review of Systems - Review of Systems Constitutional: weakness. negative: fever, chills, sweats, malaise, other ENT: negative: Ear Pain, Ear Discharge, Nose Pain, Nose Discharge, Nose Congestion, Mouth Pain, Mouth Swelling, Throat Pain, Throat Swelling, Other Respiratory: Cough, SOB with Excertion. negative: Dry, Shortness of Breath, Hemoptysis, Pleuritic Pain, Sputum, Wheezing Cardiovascular: negative: chest pain, palpitations, orthopnea, paroxysmal nocturnal dyspnea, edema, light headedness, other Gastrointestinal: negative: Nausea, Vomiting, Abdominal Pain, Diarrhea, Constipation, Melena, Hematochezia, Other Genitourinary: negative: Dysuria, Frequency, Incontinence, Hematuria, Retention , Other Musculoskeletal: negative: Neck Pain, Shoulder Pain, Arm Pain, Back Pain, Hand Pain, Leg Pain, Foot Pain, Other Skin: negative: Rash, Lesions, Jewel, Bruising, Other Neurological: negative: Weakness, Numbness, Incoordination, Change in Speech, Confusion, Seizures, Other - Medications/Allergies Allergies/Adverse Reactions: Allergies Allergy/AdvReac Type Severity Reaction Status Date / Time iodine Allergy Verified 11/26/17 06:15 Medications: Current Medications Acetaminophen (Tylenol) 650 mg PO Q4H PRN PRN Reason: Headache/Fever or Pain Last Admin: 11/28/17 08:37 Dose: 650 mg Hydrocodone Bitart/Acetaminophen ([place] 5/325) 1 tab PO Q4H PRN PRN Reason: Moderate Pain (4-6) Last Admin: 11/26/17 21:46 Dose: 1 tab Albuterol Sulfate (Ventolin) 2.5 mg NEB [id number] PRN PRN Reason: SOB &/or Wheezing Apixaban (Eliquis) 5 mg PO BID [facility] Aspirin (Aspirin Chewable) 81 mg PO DAILY [facility] Last Admin: 11/28/17 08:39 Dose: 81 mg Atorvastatin Calcium (Lipitor) 10 mg PO QPM [facility] Last Admin: 11/27/17 20:18 Dose: 10 mg Carvedilol (Coreg) 3.125 mg PO BID-[facility] Last Admin: 11/28/17 08:40 Dose: 3.125 mg Cholecalciferol (Vitamin D3) 5,000 units PO DAILY [facility] Last Admin: 11/28/17 08:37 Dose: 5,000 units Clonidine (Catapres) 0.05 mg PO BID [facility] Last Admin: 11/28/17 08:38 Dose: 0.05 mg Cyanocobalamin (Vitamin B-12) 500 mcg PO DAILY [facility] Last Admin: 11/28/17 08:40 Dose: 500 mcg Dextrose/Water (Dextrose 50%) 25 gm SLOW IVP PRN PRN PRN Reason: Hypoglycemia Docusate Sodium (Colace) 100 mg PO BID [facility] Last Admin: 11/28/17 08:37 Dose: 100 mg Famotidine (Pepcid) 20 mg PO BID [facility] Last Admin: 11/28/17 08:36 Dose: 20 mg Folic Acid (Folvite) 1 mg PO BID [facility] Last Admin: 11/28/17 08:38 Dose: 1 mg Furosemide (Lasix) 40 mg PO DAILY-[facility] Glucagon (Glucagon) 1 mg IM PRN PRN PRN Reason: Hypoglycemia Guaifenesin/Dextromethorphan (Robitussin Dm) 15 ml PO Q4H PRN PRN Reason: Cough Hydralazine HCl (Apresoline) 10 mg SLOW IVP Q4H PRN PRN Reason: Hypertension Hydroxychloroquine Sulfate (Plaquenil) 200 mg PO BID [facility] Last Admin: 11/28/17 08:35 Dose: 200 mg Dextrose/Water (D5w) 1,000 mls @ 0 mls/hr IV .Q0M PRN; As Directed PRN Reason: Hypoglycemia Insulin Human Lispro (Humalog) 0 units SC .MILD SLIDING SCALE PRN PRN Reason: Mild Correctional Scale Last Admin: 11/26/17 18:10 Dose: 2 unit Isosorbide Dinitrate (Isordil) 10 mg PO BID [facility] Last Admin: 11/28/17 08:36 Dose: 10 mg Labetalol HCl (Normodyne) 10 mg SLOW IVP Q4H PRN PRN Reason: SBP Greater Than 180 Lactulose (Lactulose) 20 gm PO DAILYPRN PRN PRN Reason: Constipation Losartan Potassium (Cozaar) 50 mg PO BID [facility] Last Admin: 11/28/17 08:39 Dose: 50 mg Magnesium Hydroxide (Milk Of Magnesium) 30 ml PO DAILYPRN PRN PRN Reason: Constipation Last Admin: 11/26/17 10:05 Dose: 30 ml [facility] Last Admin: 11/28/17 08:38 Dose: 500 mg Ondansetron HCl (Zofran) 4 mg IVP Q6H PRN PRN Reason: Nausea/Vomiting Potassium Chloride (K-Dur) 40 meq PO BID-[facility] Last Admin: 11/28/17 08:38 Dose: 40 meq Pramipexole Dihydrochloride (Mirapex) 0.25 mg PO QPM [facility] Last Admin: 11/27/17 20:18 Dose: 0.25 mg Sodium Chloride (Flush - Normal Saline) 10 ml IVF Q12HR [facility] Last Admin: 11/28/17 08:40 Dose: 10 ml Sodium Chloride (Flush - Normal Saline) 10 ml IVF PRN PRN PRN Reason: Saline Flush
[2017-11-28] MEDS ORDERED: Methotrexate Sodium 2.5 MG TAB PO SCH (15:00)
[2017-11-28] MEDS: Apixaban 5 MG TAB PO SCH (21:21)
[2017-11-28] MEDS: Atorvastatin Calcium 10 MG TAB PO SCH (21:21)
[2017-11-28] MEDS: Pramipexole Di-HCl 0.25 MG TAB PO SCH (21:21)
[2017-11-29 06:33] LABS: Anion Gap 11 mmol/L (10-20); BUN (Urea Nitrogen) 26 mg/dL (9.8-20.1); Calc. Creatinine Clearance 55 mL/min (70-130); Calcium 8.8 mg/dL (7.8-10.44); Carbon Dioxide 23 mmol/L (23-31); Chloride 106 mmol/L (98-107); Estimated GFR-MDRD 70; Glucose 86 mg/dL (83-110); Potassium 4.9 mmol/L (3.5-5.1); Sodium 135 mmol/L (136-145)
--- NOTE | 2017-11-29 10:14 | PDOC.CTH ---
<Naima Meredith - Last Filed: 11/29/17 12:04> Cardiology Progress Note - Subjective The pt seen and examined. No overnight events. No cardiac complaints. She walked longer today with PTs; however, per PTs, she had to stop several times today for rest. Per family, she did not sleep at all last night. The pt wishes her code status to be DNR. After long conversation about DNR and LifeVest, she would like to think about d/c home with LifeVest at this moment. - Objective Vital Signs Temp Pulse Resp BP Pulse Ox 11/29/17 08:00 97.7 F 62 16 138/75 100 11/29/17 04:00 98.7 F 52 L 18 114/64 97 11/29/17 00:00 98.9 F 54 L 32 H 131/62 99 Weight 155 lb 4.8 oz 11/28/17 11/29/17 11/30/17 06:59 06:59 06:59 Intake Total 390 Balance 390 - Physical Examination General/Neuro: alert & oriented x3 Neck: no JVD present Lungs: CTA (diminished at bases) Heart: RRR Extremities: other: (No edema) - Telemetry Telemetry Rhythm: [id number] - Labs Result Diagrams: 11/27/17 04:23 11/29/17 05:53 Troponin/CKMB CK-MB (CK-2) 2.4 ng/mL (0-6.6) 11/25/17 16:02 Troponin I 0.382 ng/mL (< 0.028) H* 11/27/17 04:23 - Assessment/Plan 1. New onset Afib - Converted back to SR with HR 50-60s. On Coreg and Eliquis 5mg BID; stop ASA 81mg daily. 2. Acute on chronic systolic HF - Echo on 11/26/17 showed EF 25-30% (55% in 2016), mild-mod LAE, mild MR, mild AR, mild-mod TR, and mod elevated PAP. stable with Lasix IV, bblocker, and Losartan. Change Lasix from IV to Po daily. The pt is waiting for LifeVest at this moment. 3. Acute resp. failure - She was on RA until last night when she was uncomfortable sleeping due to SOB; on 2LNC now; managed by PCP and laboratory mechanic helper 4. HTN - stable 5. mild CAD - stable; cont. to monitor on tele 6. Hx of Benign esophageal stricture and s/p Esophageal dilation a few years ago - instructed to sit up straight for eating and drinking. Coughing after drinking and eating this AM worsen then yesterday. Oder Speech eval today. MAR reviewed * EF significantly decreased from prior echo. She has developed atrial fibrillation and this may also have contributed to the volume overload and CHF. She has been receiving Cimzia for her arthritis.She did have some swelling after the injections and this may also have been a contributing factor. * The pt will be d/[facility] home with LifeVest and Echo within 1 month. Per the pt and family, the pt refused AICD placement at this time. Review of Systems - Review of Systems Constitutional: reports: weakness EENTM: reports: no symptoms reported Respiratory: reports: SOB at rest Cardiac (ROS): reports: no symptoms reported ABD/GI: reports: no symptoms reported : reports: no symptoms reported <Taran Chauhan - Last Filed: 11/29/17 16:07> Cardiology Progress Note - Objective Vital Signs Temp Pulse Pulse Pulse Resp BP BP 11/29/17 16:01 98.4 F 58 L 16 11/29/17 11:58 97.9 F 62 14 11/29/17 09:25 53 L 56 L 174/90 H 140/63 11/29/17 08:00 97.7 F 62 16 BP Pulse Ox Pulse Ox Pulse Ox 11/29/17 16:01 153/92 H 98 11/29/17 11:58 165/65 H 97 11/29/17 09:25 99 99 11/29/17 08:00 138/75 100 Weight 155 lb 4.8 oz 11/28/17 11/29/17 11/30/17 06:59 06:59 06:59 Intake Total 390 Balance 390 - Labs Result Diagrams: 11/27/17 04:23 11/29/17 05:53 Troponin/CKMB CK-MB (CK-2) 2.4 ng/mL (0-6.6) 11/25/17 16:02 Troponin I 0.382 ng/mL (< 0.028) H* 11/27/17 04:23 - Assessment/Plan pt. seen and eval. by me. I had a long discussion with the pt. and family. She is agreeable for the life-Vest. I will see her back in a month in the office and repeat the echo to see if the EF has improved. i agree with the A/P by the INSTITUTIONAL RESEARCH DIRECTOR.
[2017-11-29] MEDS: Isosorbide Dinitrate 5 MG TAB PO SCH ×2 (12:04→22:04)
[2017-11-29] MEDS: Potassium Chloride 20 MEQ TAB PO SCH ×2 (12:04→16:10)
[2017-11-29] MEDS: Folic Acid 1 MG TAB PO SCH ×2 (12:05→21:59)
[2017-11-29] MEDS: Cyanocobalamin (Vitamin B-12) 1,000 MCG TAB PO SCH (12:06)
[2017-11-29] MEDS: Hydroxychloroquine Sulfate 200 MG TAB PO SCH ×2 (12:06→21:59)
[2017-11-29] MEDS: Famotidine 20 MG TAB PO SCH ×2 (12:07→21:57)
[2017-11-29] MEDS: metFORMIN 500 MG TAB PO SCH ×2 (12:07→16:10)
[2017-11-29] MEDS: Docusate 100 MG CAP PO SCH ×2 (12:07→21:59)
[2017-11-29] MEDS: Losartan 25 MG TAB PO SCH ×2 (12:07→22:00)
[2017-11-29] MEDS: Apixaban 5 MG TAB PO SCH ×2 (12:08→21:59)
[2017-11-29] MEDS: Carvedilol 3.125 MG TAB PO SCH ×2 (12:08→16:10)
[2017-11-29] MEDS ORDERED: Furosemide 40 MG TAB PO SCH (12:45)
[2017-11-29] MEDS: Acetaminophen 325 MG TAB PO PRN (13:22)
--- NOTE | 2017-11-29 14:04 | PDOC.PN ---
- Subjective Encounter Start Date: 11/29/17 Encounter Start Time: 14:03 Subjective: feels tired.didnt sleep well last night -: Worked w PT but got SOB -: c/o easy [place]O & orthopnea today - Objective Vital Signs & Weight: Vital Signs (12 hours) Temp Pulse Pulse Pulse Resp BP BP 11/29/17 11:58 97.9 F 62 14 11/29/17 09:25 53 L 56 L 174/90 H 140/63 11/29/17 08:00 97.7 F 62 16 11/29/17 04:00 98.7 F 52 L 18 BP Pulse Ox Pulse Ox Pulse Ox 11/29/17 11:58 165/65 H 97 11/29/17 09:25 99 99 11/29/17 08:00 138/75 100 11/29/17 04:00 114/64 97 Weight Weight 155 lb 4.8 oz Most Recent Monitor Data Heart Rate from ECG 54 NIBP 116/30 NIBP BP-Mean 61 Respiration from ECG 23 SpO2 100 I&O: 11/28/17 11/29/17 11/30/17 06:59 06:59 06:59 Intake Total 390 Balance 390 Result Diagrams: 11/27/17 04:23 11/29/17 05:53 Additional Labs: Accuchecks 11/29/17 11/29/17 11/28/17 10:57 05:45 20:58 POC Glucose 125 H 97 105 11/28/17 16:52 POC Glucose 93 Microbiology 11/25/17 22:18 Venous blood - Right Arm Blood Culture - Preliminary NO GROWTH AT 48 HOURS 11/25/17 22:18 Venous blood - Left Arm Blood Culture - Preliminary NO GROWTH AT 48 HOURS Phys Exam - Physical Examination Constitutional: NAD HEENT: PERRLA, moist MMs, sclera anicteric, oral pharynx no lesions Neck: no JVD Respiratory: no wheezing, no rhonchi bibasilar crackles Cardiovascular: RRR, no significant murmur Gastrointestinal: soft, non-tender, no distention, positive bowel sounds Musculoskeletal: no edema, pulses present Neurological: non-focal, normal sensation, moves all 4 limbs Psychiatric: normal affect, A&O x 3 Skin: no rash Dx/Plan (1) New onset a-fib Code(s): I48.91 - UNSPECIFIED ATRIAL FIBRILLATION Status: Acute Comment: Rate controlled on Coreg.On Anticoagulation per cardiology (2) Acute exacerbation of CHF (congestive heart failure) Code(s): I50.9 - HEART FAILURE, UNSPECIFIED Status: Acute Qualifiers: Heart failure type: unspecified Qualified Code(s): I50.9 - Heart failure, unspecified Comment: on Lasix 40mg IV daily, EF 25%, ? AICD or pacer vs palliative measures , family leaning toward palliative options (3) Acute respiratory failure with hypoxia Code(s): J96.01 - ACUTE RESPIRATORY FAILURE WITH HYPOXIA Status: Acute Comment: s/p BiPAP NIMV, continue O2 via NC, wean off O2 as clinically tolerated , overall improved (4) Hypokalemia Code(s): E87.6 - HYPOKALEMIA Status: Resolved Comment: KCL 40meq po BID, repeat K+ level in am (5) Cardiomyopathy Code(s): I42.9 - CARDIOMYOPATHY, UNSPECIFIED Status: Chronic Comment: New diagnosis. Will need LifeVest per cardiology.Refusing AICD (6) DM II (diabetes mellitus, type II), controlled Code(s): E11.9 - TYPE 2 DIABETES MELLITUS WITHOUT COMPLICATIONS Status: Chronic Comment: Continue Metformin daily, ISS, ADA (7) Macrocytic anemia Code(s): D53.9 - NUTRITIONAL ANEMIA, UNSPECIFIED Status: Chronic Comment: Stable currently, continue serial monitoring, no evidence of acute blood loss - Plan plan discussed w/ family, PT/OT, respiratory therapy, incentive spirometry, out of bed/ambulate, DVT proph w/SCDs C/O cough w eating.will get [employer] eval.h/o esophageal stricture w OP work up -: Pt waiting for lifevest per Cardiology -: cont meds as below. -: will try 1 additional dose of IV lasix for increased Orthopnea & O2 require -: DC when off of O2 & LifeVest set up w HH * . Review of Systems - Review of Systems Constitutional: weakness, malaise. negative: fever, chills, sweats, other Eyes: negative: Pain, Vision Change, Conjunctivae Inflammation, Eyelid Inflammation, Redness, Other ENT: negative: Ear Pain, Ear Discharge, Nose Pain, Nose Discharge, Nose Congestion, Mouth Pain, Mouth Swelling, Throat Pain, Throat Swelling, Other Respiratory: SOB with Excertion Cardiovascular: orthopnea. negative: chest pain, palpitations, paroxysmal nocturnal dyspnea, edema, light headedness, other Gastrointestinal: negative: Nausea, Vomiting, Abdominal Pain, Diarrhea, Constipation, Melena, Hematochezia, Other Genitourinary: negative: Dysuria, Frequency, Incontinence, Hematuria, Retention , Other Musculoskeletal: negative: Neck Pain, Shoulder Pain, Arm Pain, Back Pain, Hand Pain, Leg Pain, Foot Pain, Other Skin: negative: Rash, Lesions, Jewel, Bruising, Other Neurological: negative: Weakness, Numbness, Incoordination, Change in Speech, Confusion, Seizures, Other - Medications/Allergies Allergies/Adverse Reactions: Allergies Allergy/AdvReac Type Severity Reaction Status Date / Time iodine Allergy Verified 11/26/17 06:15 Medications: Current Medications Acetaminophen (Tylenol) 650 mg PO Q4H PRN PRN Reason: Headache/Fever or Pain Last Admin: 11/29/17 13:22 Dose: 650 mg Hydrocodone Bitart/Acetaminophen ([place] 5/325) 1 tab PO Q4H PRN PRN Reason: Moderate Pain (4-6) Last Admin: 11/26/17 21:46 Dose: 1 tab Albuterol Sulfate (Ventolin) 2.5 mg NEB [id number] PRN PRN Reason: SOB &/or Wheezing Apixaban (Eliquis) 5 mg PO BID [facility] Last Admin: 11/29/17 12:08 Dose: 5 mg Atorvastatin Calcium (Lipitor) 10 mg PO QPM [facility] Last Admin: 11/28/17 21:21 Dose: 10 mg Carvedilol (Coreg) 3.125 mg PO BID-[facility] Last Admin: 11/29/17 12:08 Dose: 3.125 mg Cholecalciferol (Vitamin D3) 5,000 units PO DAILY [facility] Last Admin: 11/29/17 12:05 Dose: 5,000 units Cyanocobalamin (Vitamin B-12) 500 mcg PO DAILY [facility] Last Admin: 11/29/17 12:06 Dose: 500 mcg Dextrose/Water (Dextrose 50%) 25 gm SLOW IVP PRN PRN PRN Reason: Hypoglycemia Docusate Sodium (Colace) 100 mg PO BID [facility] Last Admin: 11/29/17 12:07 Dose: 100 mg Famotidine (Pepcid) 20 mg PO BID [facility] Last Admin: 11/29/17 12:07 Dose: 20 mg Folic Acid (Folvite) 1 mg PO BID [facility] Last Admin: 11/29/17 12:05 Dose: 1 mg Furosemide (Lasix) 40 mg PO DAILY-[facility] Furosemide (Lasix) 40 mg SLOW IVP ONE [facility] Glucagon (Glucagon) 1 mg IM PRN PRN PRN Reason: Hypoglycemia Guaifenesin/Dextromethorphan (Robitussin Dm) 15 ml PO Q4H PRN PRN Reason: Cough Hydralazine HCl (Apresoline) 10 mg SLOW IVP Q4H PRN PRN Reason: Hypertension Hydroxychloroquine Sulfate (Plaquenil) 200 mg PO BID [facility] Last Admin: 11/29/17 12:06 Dose: 200 mg Dextrose/Water (D5w) 1,000 mls @ 0 mls/hr IV .Q0M PRN; As Directed PRN Reason: Hypoglycemia Insulin Human Lispro (Humalog) 0 units SC .MILD SLIDING SCALE PRN PRN Reason: Mild Correctional Scale Last Admin: 11/26/17 18:10 Dose: 2 unit Isosorbide Dinitrate (Isordil) 10 mg PO BID [facility] Last Admin: 11/29/17 12:04 Dose: 10 mg Labetalol HCl (Normodyne) 10 mg SLOW IVP Q4H PRN PRN Reason: SBP Greater Than 180 Lactulose (Lactulose) 20 gm PO DAILYPRN PRN PRN Reason: Constipation Losartan Potassium (Cozaar) 50 mg PO BID [facility] Last Admin: 11/29/17 12:07 Dose: 50 mg Magnesium Hydroxide (Milk Of Magnesium) 30 ml PO DAILYPRN PRN PRN Reason: Constipation Last Admin: 11/26/17 10:05 Dose: 30 ml Metformin HCl (Glucophage) 500 mg PO BID-[facility] Last Admin: 11/29/17 12:07 Dose: 500 mg Methotrexate Sodium (Methotrexate Sodium) 15 mg PO Q7D [facility] Last Admin: 11/28/17 17:06 Dose: 15 mg Ondansetron HCl (Zofran) 4 mg IVP Q6H PRN PRN Reason: Nausea/Vomiting Potassium Chloride (K-Dur) 40 meq PO BID-[facility] Last Admin: 11/29/17 12:04 Dose: 40 meq Pramipexole Dihydrochloride (Mirapex) 0.25 mg PO QPM [facility] Last Admin: 11/28/17 21:21 Dose: 0.25 mg Sodium Chloride (Flush - Normal Saline) 10 ml IVF Q12HR [facility] Last Admin: 11/29/17 12:08 Dose: 10 ml Sodium Chloride (Flush - Normal Saline) 10 ml IVF PRN PRN PRN Reason: Saline Flush
[2017-11-29] MEDS ORDERED: Furosemide 40 MG/4 ML VIAL SLOW IVP SCH (14:15)
[2017-11-29] MEDS: cloNIDine 0.1 MG TAB PO SCH (14:32)
[2017-11-29] MEDS: Furosemide 40 MG TAB PO SCH (14:33)
[2017-11-29] MEDS ORDERED: ALPRAZolam 0.25 MG TAB PO SCH (15:30)
[2017-11-29] MEDS: Atorvastatin Calcium 10 MG TAB PO SCH (21:59)
[2017-11-29] MEDS: Pramipexole Di-HCl 0.25 MG TAB PO SCH (22:00)
[2017-11-30 04:57] LABS: #Basophils 0.1 thou/uL (0.0-0.2); #Eosinphils 0.4 thou/uL (0.0-0.7); #Lymphocytes 2.1 thou/uL (1.20-3.40); #Monocytes 0.7 thou/uL (0.11-0.59); #Neutrophils 2.7 thou/uL (1.40-6.50); %Basophils 0.9 % (0.0-1.0); %Eosinophils 6.3 % (0.0-10.0); %Lymphocytes 35.1 % (21.0-51.0); %Monocytes 12.1 % (0.0-10.0); %Neutrophils 45.6 % (42.0-75.0); Hemoglobin 9.7 g/dL (12.0-16.0); Mean Corpuscular HGB CONC 32.8 g/dL (32.0-36.0); Mean Corpuscular Hemoglobin 32.3 pg (27.0-31.0); Mean Corpuscular Volume 98.4 fl (81.0-99.0); Mean Platelet Volume 8.1 fL (7.4-10.4); Platelet Count 176 thou/uL (130-400); RBC Distribution Width 14.6 % (11.5-14.5); Red Blood Cell (RBC) Count 2.99 mill/uL (4.20-5.40); White Blood Cell (WBC) Count 5.9 thou/uL (4.8-10.8)
[2017-11-30 05:16] LABS: Anion Gap 15 mmol/L (10-20); BUN (Urea Nitrogen) 25 mg/dL (9.8-20.1); Calc. Creatinine Clearance 49 mL/min (70-130); Calcium 9.4 mg/dL (7.8-10.44); Carbon Dioxide 22 mmol/L (23-31); Chloride 105 mmol/L (98-107); Estimated GFR-MDRD 65; Glucose 91 mg/dL (83-110); Potassium 4.8 mmol/L (3.5-5.1); Sodium 137 mmol/L (136-145)
[2017-11-30] MEDS: metFORMIN 500 MG TAB PO SCH (10:12)
[2017-11-30] MEDS: Potassium Chloride 20 MEQ TAB PO SCH (10:12)
[2017-11-30] MEDS: Furosemide 40 MG TAB PO SCH (10:12)
[2017-11-30] MEDS: Carvedilol 3.125 MG TAB PO SCH (10:12)
[2017-11-30] MEDS: Apixaban 5 MG TAB PO SCH (10:13)
[2017-11-30] MEDS: Docusate 100 MG CAP PO SCH (10:15)
[2017-11-30] MEDS: Cyanocobalamin (Vitamin B-12) 1,000 MCG TAB PO SCH (10:15)
[2017-11-30] MEDS: Famotidine 20 MG TAB PO SCH (10:15)
[2017-11-30] MEDS: Hydroxychloroquine Sulfate 200 MG TAB PO SCH (10:16)
[2017-11-30] MEDS: Losartan 25 MG TAB PO SCH (10:16)
[2017-11-30] MEDS: Isosorbide Dinitrate 5 MG TAB PO SCH (10:16)
[2017-11-30] MEDS: Folic Acid 1 MG TAB PO SCH (10:16)
[2017-11-30 11:07] VITALS: TEMP 98.6
[2017-11-30 11:16] VITALS: BP 199/89
--- NOTE | 2017-11-30 11:58 | DIS ---
DATE OF ADMISSION: 11/25/2017 DATE OF DISCHARGE: 11/30/2017 CONDITION AT THE TIME OF DISCHARGE: Stable and improved. DISCHARGE DISPOSITION: Home with home health with [facility]. PRIMARY CARE PHYSICIAN: Cesilia Crystal M.D. DISCHARGE FOLLOWUP: 1. Primary care physician. 2. Cardiology, Dr. Chauhan. DISCHARGE DIAGNOSES: 1. New onset atrial fibrillation, converted back to sinus rhythm. 2. Acute on chronic systolic congestive heart failure, ejection fraction done on 11/26/2017 shows an ejection fraction of 25% to 30%. The patient refused LifeVest or automatic implantable cardioverter -defibrillator placement. 3. Acute respiratory failure secondary to #1 and #2, resolved. 4. Hypertension. 5. Mild coronary artery disease. 6. History of benign esophageal stricture, status post dilatation. 7. Generalized weakness. 8. Diabetes mellitus type 2. 9. Macrocytic anemia. DISCHARGE MEDICATIONS: Include clonidine 0.1 mg p.o. b.i.d., pramipexole 0.25 mg in the evening, iso sorbide dinitrate 10 mg p.o. b.i.d., vitamin B12 daily, Lasix 40 mg 1 tablet and then half tablet on alternate days, Zocor 20 mg daily, losartan 50 mg p.o. b.i.d., Plaquenil 200 mg p.o. b.i.d., metformi n 500 mg p.o. b.i.d., folic acid 1 mg p.o. b.i.d., methotrexate 15 mg every 7 days and vitamin D3 eduarda ly. NEW MEDICATIONS: Coreg 3.125 mg p.o. b.i.d. and Eliquis 5 mg p.o. b.i.d. IN HOUSE CONSULTATIONS: 1. Cardiology; Dr. Gonzalez and Dr. Chauhan. 2. Pulmonary Medicine, Dr. Kaplan. PROCEDURES DONE IN THE HOSPITAL: Include transthoracic echocardiogram, which shows very poor ejectio n fraction of 25% to 30% as well as diastolic dysfunction with moderately elevated pulmonary arterial pressure without any significant valvular abnormalities. HISTORY OF PRESENT ILLNESS: Ms. Garcia is a very pleasant 87-year-old female with past medical hist ory of rheumatoid arthritis, diabetes, hypertension, chronic anemia, dyslipidemia, hypothyroidism and CHF, who presented to the emergency room with complaints of shortness of breath as well as 1 week hi story of malaise, dizziness and cough. Upon presentation, her oxygen saturation was above 92% with o xygen supplementation, but initially she was in the mid 80s without oxygen. She also was found to moreno ve a BNP of 852 with a troponin of 0.026. Chest x-ray showed interstitial and alveolar opacities sug gesting infiltrates. She was given IV antibiotic for possible pneumonia in the emergency room and wa s admitted for the same resulting in acute respiratory failure. She was also found to have acute on chronic congestive heart failure. Please see admission history and physical for further details. HOSPITAL COURSE: She was initially started on BiPAP and admitted to [facility]. Pulmonary Medicine was co nsulted and she was started on diuretics as well. Eventually, she was transitioned off of the BiPAP and moved out of the [facility] area. An echocardiogram was done and Cardiology was also consulted with dane vang to acute congestive heart failure. The echocardiogram showed significant worsening of her ejec tion fraction from 50% to about 25%. Initially, Dr. Gonzalez saw the patient and made medication adjus tments like changing her from atenolol to carvedilol. She was continued on IV Lasix, which was event ually transitioned to oral Lasix. The patient had episode of atrial fibrillation while in the hospital and was started on anticoagulati on with b.i.d. Lovenox dosing. Cardiology recommended continuation of Coreg and anticoagulation in [facility] outpatient setting. She spontaneously converted back to sinus rhythm in a short period of time. Her Lovenox was interrupted and she was started on Eliquis instead. Eventually, she had stabilization of all the symptoms and was taken off of the oxygen and was stable on oral dose of diuretics at this time. Rehab was addressed, but the patient and family declined. Juliana plummer wanted home health, which was arranged for them. With regards to her cardiomyopathy, she was given option for LifeVest and repeat echo in 1 month with possible AICD placement. The patient discussed it with her family and they declined it as well. Cosmo rodriguez changed her CODE STATUS from a FULL CODE to do not resuscitate and therefore was no longer a candid ate for AICD placement. She accepted this fact and did not want the LifeVest either. [facility], [facility] paperwork was signed by myself after consulting with palliative care team. On the day of discharge, she is back to her baseline and is on room air with good oxygen saturation a nywhere from 99% to 100%. She will be discharged shortly. She will be referred to outpatient Heart Failure Clinic and rehab with home health. She was seen and examined prior to discharge. PHYSICAL EXAMINATION: VITAL SIGNS: Temperature 98.6, pulse of 66, respirations 14, saturating 94% on room air and blood pr essure 139/62. GENERAL: No acute distress, awake, alert and oriented x3. Family is in the room. CHEST: Clear to auscultation without any wheezing, rales or rhonchi. HEART: Rate and rhythm is regular without any murmur, rubs or gallops. LABORATORY DATA: Blood cultures were obtained and are negative at 48 hours x2. Her hemoglobin is 9. 7 at the time of discharge, it was 9.4 at the time of admission. Renal function within normal limits . Discharge plan was discussed with the patient and her family and the nursing staff. Total time spent in the discharge of this patient 35 minutes.
[2017-11-30] MEDS: Acetaminophen 325 MG TAB PO PRN (12:23)
--- NOTE | 2018-01-07 12:46 | EKG ---
Test Reason : Blood Pressure : / mmHG Vent. Rate : 059 BPM Atrial Rate : 059 BPM P-R Int : 166 ms QRS Dur : 160 ms QT Int : 484 ms P-R-T Axes : 072 -09 117 degrees QTc Int : 479 ms Sinus bradycardia Left bundle branch block Abnormal ECG Confirmed by ARNEL CASSIDY, ANGELA ([id number]), communications editor HUY HUNTER ([id number]) on 01/07/2018 12:45:46 PM Referred By: Confirmed By:ANGELA SEALS MD
--- NOTE | 2018-01-07 12:46 | EKG ---
Test Reason : Blood Pressure : / mmHG Vent. Rate : 054 BPM Atrial Rate : 054 BPM P-R Int : 174 ms QRS Dur : 158 ms QT Int : 486 ms P-R-T Axes : 069 000 145 degrees QTc Int : 460 ms Sinus bradycardia with marked sinus arrhythmia Left bundle branch block Abnormal ECG Confirmed by ARNEL CASSIDY, ANGELA ([id number]), science editor HUY HUNTER ([id number]) on 01/07/2018 12:45:43 PM Referred By: Confirmed By:ANGELA SEALS MD
== END 2017-11-30 13:11 | disposition home health service (06) | DRG 291 ==
LOC: ERS 15:26 → CCU 11-26 02:46 → 2SE 11-27 06:51
PROVIDERS: ADMIT Internal Medicine; ATTEND Internal Medicine
PROC: 5A09357 Assistance with Respiratory Ventilation, Less than 24 Consecutive Hours, Continuous Positive Airway Pressure (ICD-10-PCS; principal; 2017-11-26)
DX: I11.0 Hypertensive heart disease with heart failure (principal); J96.01 Acute respiratory failure with hypoxia; D69.6 Thrombocytopenia, unspecified; I42.9 Cardiomyopathy, unspecified; D53.9 Nutritional anemia, unspecified; E11.9 Type 2 diabetes mellitus without complications; I48.91 Unspecified atrial fibrillation; I50.23 Acute on chronic systolic (congestive) heart failure; M06.9 Rheumatoid arthritis, unspecified; Z66 Do not resuscitate; Z51.5 Encounter for palliative care; E03.9 Hypothyroidism, unspecified; E78.5 Hyperlipidemia, unspecified; I25.10 Atherosclerotic heart disease of native coronary artery without angina pectoris; R53.1 Weakness; E87.6 Hypokalemia; Z91.041 Radiographic dye allergy status; Z79.84 Long term (current) use of oral hypoglycemic drugs; Z79.82 Long term (current) use of aspirin; Z79.899 Other long term (current) drug therapy
CPT/HCPCS: 36415; 36416; 71045; 80048; 80053; 81003; 81015; 82553; 83605; 83880; 84484; 85025; 86850; 86900; 86901; 87040; 93005; 93306; 93798; 94660; 96365; 96375; A4216; G8996-GN-CK; G8997-GN-CJ; J0456; J0692; J1650; J1940; J2060; J7620; J8610

== ENCOUNTER 2017-12-01 21:42 | Emergency (ER) | payer MEDICARE, BC ==
[2017-12-01 22:54] LABS: #Basophils 0.1 thou/uL (0.0-0.2); #Eosinphils 0.2 thou/uL (0.0-0.7); #Lymphocytes 1.7 thou/uL (1.20-3.40); #Monocytes 0.6 thou/uL (0.11-0.59); #Neutrophils 3.3 thou/uL (1.40-6.50); %Basophils 0.9 % (0.0-1.0); %Eosinophils 4.1 % (0.0-10.0); %Lymphocytes 29.6 % (21.0-51.0); %Monocytes 9.6 % (0.0-10.0); %Neutrophils 55.8 % (42.0-75.0); Hemoglobin 9.3 g/dL (12.0-16.0); Mean Corpuscular HGB CONC 33.2 g/dL (32.0-36.0); Mean Corpuscular Hemoglobin 32.6 pg (27.0-31.0); Mean Corpuscular Volume 98.2 fl (81.0-99.0); Mean Platelet Volume 7.8 fL (7.4-10.4); Platelet Count 189 thou/uL (130-400); RBC Distribution Width 14.3 % (11.5-14.5); Red Blood Cell (RBC) Count 2.84 mill/uL (4.20-5.40); White Blood Cell (WBC) Count 5.8 thou/uL (4.8-10.8)
[2017-12-01 23:18] LABS: ALT (SGPT) 19 U/L (8-55); AST (SGOT) 26 U/L (5-34); Albumin 3.6 g/dL (3.4-4.8); Alcohol Less than 10 mg/dL (Less than 10); Alkaline Phosphatase 40 U/L (40-150); Anion Gap 17 mmol/L (10-20); BUN (Urea Nitrogen) 34 mg/dL (9.8-20.1); Bilirubin, Total 0.5 mg/dL (0.2-1.2); Calc. Creatinine Clearance 0 mL/min (70-130); Calcium 9.8 mg/dL (7.8-10.44); Carbon Dioxide 21 mmol/L (23-31); Chloride 102 mmol/L (98-107); Estimated GFR-MDRD 28; Globulin 2.8 g/dL (2.4-3.5); Glucose 136 mg/dL (83-110); Potassium 4.9 mmol/L (3.5-5.1); Protein, Total 6.4 g/dL (6.0-8.3); Salicylate Less than 8.0 mg/dL (15.0-30.0); Sodium 135 mmol/L (136-145)
--- NOTE | 2018-02-01 16:12 | EKG ---
Test Reason : AMS Blood Pressure : / mmHG Vent. Rate : 055 BPM Atrial Rate : 055 BPM P-R Int : 000 ms QRS Dur : 160 ms QT Int : 514 ms P-R-T Axes : 000 021 128 degrees QTc Int : 491 ms Wide QRS rhythm Left bundle branch block Abnormal ECG Confirmed by ARNEL CASSIDY, ANGELA ([id number]), news copy editor HUY HUNTER ([id number]) on 02/01/2018 4:11:25 PM Referred By: ARNEL Confirmed By:ANGELA SEALS MD
== END 2017-12-02 01:46 | disposition home or self-care (01) ==
LOC: ERS 21:42
DX: N17.9 Acute kidney failure, unspecified (principal); R53.83 Other fatigue; E11.9 Type 2 diabetes mellitus without complications; E78.2 Mixed hyperlipidemia; I10 Essential (primary) hypertension; M06.9 Rheumatoid arthritis, unspecified; Z85.828 Personal history of other malignant neoplasm of skin; Z79.84 Long term (current) use of oral hypoglycemic drugs; Z79.01 Long term (current) use of anticoagulants; Z79.899 Other long term (current) drug therapy
CPT/HCPCS: 36415; 36416; 80053; 80307; 85025; 93005

== ENCOUNTER 2017-12-16 15:59 | Inpatient (IN) | payer MEDICARE, BC ==
[2017-12-16 16:28] LABS: Base Excess-Venous 2.3 mmol/L (0 (+/- 2.5)); Bicarbonate (HCO3v) 26.3 mmol/L (1.0-85.0); CO2 Tension (PvCO2) 37.8 mmHg (41.0-51.0); Calcium, Ionized 1.11 mmol/L (1.12-1.32); Hemoglobin - Calc 11.7 g/dL (12.0-18.0); O2 Tension (PvO2) 12.6 mmHg (35.0-45.0); Potassium 4.3 mmol/L (3.4-4.7); T. Carbon Dioxide 27.5 mmol/L (1.0-85.0); vO2 Saturation-calc 15.7 % (94-98)
[2017-12-16 16:32] LABS: #Basophils 0.1 thou/uL (0.0-0.2); #Lymphocytes 2.5 thou/uL (1.20-3.40); #Monocytes 0.6 thou/uL (0.11-0.59); #Neutrophils 4.1 thou/uL (1.40-6.50); %Basophils 1.5 % (0.0-1.0); %Eosinophils 0.5 % (0.0-10.0); %Lymphocytes 33.8 % (21.0-51.0); %Monocytes 8.4 % (0.0-10.0); %Neutrophils 55.8 % (42.0-75.0); Hemoglobin 10.3 g/dL (12.0-16.0); Mean Corpuscular HGB CONC 32.8 g/dL (32.0-36.0); Mean Corpuscular Hemoglobin 32.7 pg (27.0-31.0); Mean Corpuscular Volume 99.7 fl (81.0-99.0); Mean Platelet Volume 8.2 fL (7.4-10.4); Platelet Count 208 thou/uL (130-400); RBC Distribution Width 14.8 % (11.5-14.5); Red Blood Cell (RBC) Count 3.16 mill/uL (4.20-5.40); White Blood Cell (WBC) Count 7.3 thou/uL (4.8-10.8)
[2017-12-16 16:36] LABS: INR-International Normal Ratio 1.7; Prothrombin Time 20.2 SEC (12.0-14.7)
[2017-12-16 16:37] LABS: PTT 40.2 SEC (22.9-36.1)
[2017-12-16] MEDS ORDERED: Furosemide 40 MG/4 ML VIAL ONE (16:54)
[2017-12-16 16:56] LABS: ALT (SGPT) 12 U/L (8-55); AST (SGOT) 24 U/L (5-34); Albumin 3.7 g/dL (3.4-4.8); Alkaline Phosphatase 40 U/L (40-150); Anion Gap 14 mmol/L (10-20); BUN (Urea Nitrogen) 12 mg/dL (9.8-20.1); Bilirubin, Total 0.5 mg/dL (0.2-1.2); CK (CPK) 156 U/L (29-168); Calc. Creatinine Clearance 0 mL/min (70-130); Carbon Dioxide 21 mmol/L (23-31); Chloride 94 mmol/L (98-107); Estimated GFR-MDRD 61; Globulin 2.9 g/dL (2.4-3.5); Glucose 137 mg/dL (83-110); Potassium 4.5 mmol/L (3.5-5.1); Protein, Total 6.6 g/dL (6.0-8.3); Sodium 124 mmol/L (136-145)
[2017-12-16 16:58] LABS: CKMB 4.2 ng/mL (0-6.6); Troponin I 0.098 ng/mL (< 0.028)
[2017-12-16] MEDS ORDERED: Ondansetron HCl/PF 4 MG/2 ML Vial IVP PRN (19:07)
[2017-12-16] MEDS ORDERED: Ondansetron ODT 4 MG TAB SL PRN (19:07)
[2017-12-16] MEDS ORDERED: Acetaminophen 325 MG TAB PO PRN (19:07)
[2017-12-16] MEDS ORDERED: Dextrose 5% in Water 1,000 ML IV PRN (19:18)
[2017-12-16] MEDS ORDERED: Mag-Al 1200 mg/1200 mg/30 ML UDCUP PO PRN (19:18)
[2017-12-16] MEDS ORDERED: Guaifenesin DM 100-10/5 ML UDCUP PO PRN (19:18)
[2017-12-16] MEDS ORDERED: Dextrose 50% Abboject 50 ML SYRINGE SLOW IVP PRN (19:18)
[2017-12-16] MEDS ORDERED: HumaLOG 300 UNITS/3 ML VIAL SC PRN ×2 (19:18)
--- NOTE | 2017-12-16 19:27 | RAD ---
PORTABLE CHEST: 12/16/2017 PROVIDED CLINICAL HISTORY: Chest pain. COMPARISON: 11/25/2017 FINDINGS: The cardiac silhouette remains enlarged. Atherosclerosis is redemonstrated. Prominence of the pulmo nary vasculature and pulmonary interstitium are noted. Perihilar air space disease may be present. There is no evidence for pleural fluid or pneumothorax. IMPRESSION: Cardiomegaly and findings suggesting congestive failure with alveolar edema. Followup is recommended . POS: ADRIAN
[2017-12-16] MEDS ORDERED: metFORMIN 500 MG TAB PO SCH (20:45)
[2017-12-16] MEDS ORDERED: Carvedilol 3.125 MG TAB PO SCH (20:45)
[2017-12-16] MEDS: cloNIDine 0.1 MG TAB PO SCH (21:15)
[2017-12-16] MEDS: Apixaban 5 MG TAB PO SCH (21:17)
[2017-12-16] MEDS: Losartan 25 MG TAB PO SCH (21:17)
[2017-12-16] MEDS: Hydroxychloroquine Sulfate 200 MG TAB PO SCH (21:18)
[2017-12-16] MEDS: Pramipexole Di-HCl 0.25 MG TAB PO SCH (21:22)
[2017-12-16] MEDS: Famotidine 20 MG TAB PO SCH (21:22)
[2017-12-16] MEDS: Folic Acid 1 MG TAB PO SCH (21:25)
[2017-12-16] MEDS: Isosorbide Dinitrate 5 MG TAB PO SCH (21:25)
[2017-12-16] MEDS: Simvastatin 20 MG TAB PO SCH (21:25)
[2017-12-16] MEDS: Docusate 100 MG CAP PO SCH (21:47)
[2017-12-17] MEDS ORDERED: Furosemide 40 MG/4 ML VIAL SLOW IVP SCH ×3 (01:00→14:00)
--- NOTE | 2017-12-17 03:47 | HP ---
REASON FOR ADMISSION: Acute CHF exacerbation. HISTORY OF PRESENTING ILLNESS: The patient gives history of being at the rehab for 2 weeks. This afternoon, around 1:30 p.m., the patient developed chest discomfort and she was also tachycardic. They called rehab physician and she was advised to go to the emergency room. Prior to going to rehab, the patient was hospitalized here for a week for CHF exacerbation. She was optimized and was sent home. From there, she came back to ER as she was deconditioned per family. She was sent to rehab from the emergency room. She has been at the rehab for 2 weeks now. She has been ambulating around 145 feet with a rolling walker at the rehab. She had to rest at 1 or 2 places for shortness of breath, which gets easily relieved per family. The family also mentioned that her edema over the ankle and foot has been gradually increasing. She got Lasix on the previous 2 days, but then didn't get one today at the rehab. Currently, has no complaints of chest pain or palpitation. No complaints of cough or expectoration. She has known ejection fraction of around 25% to 30%. The patient refused LifeVest and is okay for having AICD placed. She in fact has a followup appointment in the coming week to discuss about the same. PAST MEDICAL AND SURGICAL HISTORY: History of CHF with ejection fraction of around 25% to 30%, chronic atrial fibrillation, very minimal prior coronary artery disease per prior cath, hypertension, appendectomy, cholecystectomy, C- section x2, hysterectomy, history of benign esophageal stricture with prior dilatation, diabetes mellitus type 2, macrocytic anemia, recent hypoxic respiratory failure due to volume overload. PERSONAL HISTORY: Does not abuse alcohol or drugs. No history of smoking. She was living independently prior to any of this. Her children live close by to help her out. FAMILY HISTORY: There is history of coronary artery disease, prostate cancer, and liver disease in the family. CURRENT MEDICATIONS: The patient is on Eliquis 5 mg twice daily, Coreg 3.125 mg twice daily, vitamin D3 of 5000 units p.o. daily, clonidine 0.1 mg p.o. twice daily, vitamin B12 of 500 mcg p.o. daily, folic acid 1 mg p.o. twice daily , Lasix based on weight, Plaquenil 200 mg p.o. twice daily, Isordil 10 mg twice daily, losartan 50 mg twice daily, metformin 500 mg p.o. twice daily, methotrexate 15 mg p.o. once weekly, pramipexole 0.25 mg p.o. q.p.m., Zocor 20 mg p.o. q.p.m. ALLERGIES: Allergic to IODINE. REVIEW OF SYSTEMS: The following complete review of systems was negative, unless otherwise mentioned in the HPI or below: Constitutional: Weight loss or gain, ability to conduct usual activities. Skin: Rash, itching. Eyes: Double vision, pain. ENT/Mouth: Nose bleeding, neck stiffness, pain, tenderness. Cardiovascular: Palpitations, dyspnea on exertion, orthopnea. Respiratory: Shortness of breath, wheezing, cough, hemoptysis, fever or night sweats. Gastrointestinal: Poor appetite, abdominal pain, heartburn, nausea, vomiting, constipation, or diarrhea. Genitourinary: Urgency, frequency, dysuria, nocturia. Musculoskeletal: Pain, swelling. Neurologic/Psychiatric: Anxiety, depression. Allergy/Immunologic: Skin rash, bleeding tendency. PHYSICAL EXAMINATION: GENERAL: The patient is an 87-year-old female who is currently not in any acute distress. VITAL SIGNS: Blood pressure 140/106, pulse 118 per minute, respiratory rate 18 per minute, temperature 98.1 degrees Fahrenheit, saturating 92% on 3 L nasal cannula and currently saturating 99% on room air. NECK: Supple, no elevated JVD. HEENT: Eyes: Extraocular muscles intact. Pupils are reacting to light. Oral cavity, mucous membranes are dry. No exudates or congestion. CARDIOVASCULAR SYSTEM: S1, S2 heard. Regular rhythm. RESPIRATORY SYSTEM: Air entry 1+ bilateral. Scattered basal rales. No wheezing. ABDOMEN: Soft, bowel sounds heard. No tenderness, rigidity, or guarding. EXTREMITIES: No peripheral edema or calf tenderness. VASCULAR SYSTEM: Peripheral pulses 1+ bilateral. There is mild pedal edema. No calf tenderness. No ischemic ulcerations or gangrene. CENTRAL NERVOUS SYSTEM: No gross focal deficits seen. The patient is alert and oriented well. PSYCHIATRIC SYSTEM: The patient's mood is euthymic. No hallucinations or delusions. LABORATORY AND X-RAY FINDINGS: Echo done during her recent hospitalization on 11/26/2017 shows an EF of 25% to 30%. There was also diastolic dysfunction. There was moderately elevated pulmonary artery pressure. EKG done shows sinus rhythm at 119 beats per minute. There are signs of left bundle-branch block. H and H 10 and 31, platelet count is 208, MCV is 99 with white count of 7.3. PT , INR, PTT is 20, 1.7, and 40. Sodium is 124, chloride 94, potassium 4.3, BUN 12, creatinine 0.8, glucose 137. Liver enzymes are within normal limits. Albumin is 3.7. Troponin I is 0.09. BNP is 866. Chest x-ray done shows mild pulmonary vascular congestion. CLINICAL IMPRESSION AND PLAN: The patient will be under observation on telemetry for mild congestive heart failure exacerbation. She has received 60 mg of Lasix in the ER and will be kept on 40 mg IV q.12 hours. We will continue her aspirin, Eliquis, clonidine, Coreg, folic acid, Isordil, Plaquenil , losartan, Glucophage, and Zocor as before. The patient has done remarkably well with her recent inpatient rehabilitation stay. In fact, the patient was about to be discharged from the rehabilitation in a day or two per family. She has walked 145 feet with a rolling walker that is today. She will receive a total of 2 or 3 doses of Lasix and the patient should be able to go home. She has history of acute kidney injury during her previous hospitalization with diuresis. The patient is optimized on her current medications for her heart. We will obtain consultation with Dr. Chauhan, her air cargo specialist, in the morning. The plan is to discharge her back to inpatient rehabilitation and if family wants to take her home, she will need home health with PT and nursing. Code status was discussed with the patient and family. Initially, she was DO NOT RESUSCITATE, but then later they revoked. She also has upcoming appointment with machine technician for possible automatic implantable cardioverter- defibrillator. If the patient were to have worsening shortness of breath and is unable to ambulate, requiring oxygen, her status will be switched over to inpatient status. She currently has no chest pain. [facility]ENTERKevin
[2017-12-17] MEDS: Acetaminophen 325 MG TAB PO PRN ×3 (05:07→23:24)
[2017-12-17] MEDS: Ondansetron ODT 4 MG TAB PO PRN (05:11)
[2017-12-17 06:42] LABS: #Basophils 0.1 thou/uL (0.0-0.2); #Monocytes 0.5 thou/uL (0.11-0.59); #Neutrophils 3.9 thou/uL (1.40-6.50); %Basophils 0.8 % (0.0-1.0); %Eosinophils 0.8 % (0.0-10.0); %Lymphocytes 30.2 % (21.0-51.0); %Monocytes 7.9 % (0.0-10.0); %Neutrophils 60.4 % (42.0-75.0); Hemoglobin 8.8 g/dL (12.0-16.0); Mean Corpuscular HGB CONC 34.7 g/dL (32.0-36.0); Mean Corpuscular Hemoglobin 33.6 pg (27.0-31.0); Mean Platelet Volume 7.9 fL (7.4-10.4); Platelet Count 152 thou/uL (130-400); RBC Distribution Width 15.1 % (11.5-14.5); White Blood Cell (WBC) Count 6.5 thou/uL (4.8-10.8)
[2017-12-17] MEDS ORDERED: metFORMIN 500 MG TAB PO SCH (08:00)
[2017-12-17] MEDS ORDERED: Carvedilol 3.125 MG TAB PO SCH ×2 (08:00→10:52)
[2017-12-17] MEDS: Apixaban 5 MG TAB PO SCH ×2 (08:58→20:46)
[2017-12-17] MEDS: Cyanocobalamin (Vitamin B-12) 1,000 MCG TAB PO SCH (08:58)
[2017-12-17] MEDS: Docusate 100 MG CAP PO SCH ×2 (08:59→20:47)
[2017-12-17] MEDS: Famotidine 20 MG TAB PO SCH ×2 (08:59→20:46)
[2017-12-17] MEDS: Hydroxychloroquine Sulfate 200 MG TAB PO SCH ×2 (09:00→20:46)
[2017-12-17] MEDS: Folic Acid 1 MG TAB PO SCH ×2 (09:00→20:46)
[2017-12-17] MEDS: metFORMIN 500 MG TAB PO SCH ×2 (09:00→17:51)
[2017-12-17] MEDS: Isosorbide Dinitrate 5 MG TAB PO SCH ×2 (09:01→20:47)
[2017-12-17] MEDS: Losartan 25 MG TAB PO SCH ×2 (09:01→20:47)
[2017-12-17] MEDS: cloNIDine 0.1 MG TAB PO SCH (09:01)
[2017-12-17] MEDS ORDERED: Carvedilol 6.25 MG TAB PO SCH (11:00)
--- NOTE | 2017-12-17 12:02 | CON ---
DATE OF CONSULTATION: 12/17/2017 HISTORY OF PRESENT ILLNESS: The patient is an 87-year-old woman, who presented with dyspnea, chest discomfort, and palpitations. The patient has a previous history of a cardiomyopathy. She was seen initially in 2001 and underwent a cardiac catheterization. She was found to have a mild decrease in left ventricular systolic function with mild coronary artery disease with a 20% lesion in the mid and distal LAD. The patient has subsequently been on medical therapy. She recently developed congestive heart failure. A recent echocardiogram revealed a severe decrease in left ventricular systolic function , and the patient also has a history of atrial fibrillation and has been on chronic anticoagulation therapy. The patient was recently in the hospital 2 weeks ago with atrial fibrillation. She was found to have a marked decrease in left ventricular systolic function. The patient declined to have placement of a LifeVest. The patient was treated medically and went to a rehabilitation. She developed acute onset of dyspnea. She also reported having chest discomfort and palpitations. The patient denies having present chest discomfort. PAST MEDICAL HISTORY: 1. Cardiomyopathy. 2. Coronary artery disease. 3. Hypertension. 4. Diabetes mellitus. 5. Cerebrovascular disease. 6. Hypertension. 7. Dyslipidemia. PAST SURGICAL HISTORY: hysterectomy, oophorectomy, and . SOCIAL HISTORY: Nonsmoker. ALLERGIES: She is allergic to IODINE. MEDICATIONS ON ADMISSION: Apixaban 5 b.i.d., Coreg 3.125 b.i.d., losartan 50 b.i.d., Isordil 10 b.i.d., metformin 500 b.i.d.,and clonidine 0.1 b.i.d. REVIEW OF SYSTEMS: Ten-point system otherwise unremarkable. No history of bright red blood per rectum. PHYSICAL EXAMINATION: GENERAL: This is an elderly woman in no acute distress. VITAL SIGNS: Blood pressure was 88/54. Her heart rate is 70 and irregular. NECK: Showed no jugular venous distention. LUNGS: Clear to auscultation. HEART: Irregular rate and rhythm. Normal S1 and S2, no murmurs. ABDOMEN: Nondistended. EXTREMITIES: Showed trace edema. SKIN: Warm and dry. NEUROLOGIC EXAM: Nonfocal. VASCULAR: Radial pulses are 2+. LABORATORY RESULTS: Her sodium was 127. Her potassium 4.5, chloride 94, bicarbonate 21, BUN 12, creatinine 0.8, glucose is 137, troponin was 0.098. BNP is 866. Her EKG revealed rapid atrial fibrillation with a left bundle branch block. IMPRESSION: 1. Congestive heart failure. 2. Cardiomyopathy. 3. Rapid atrial fibrillation. 4. Hypertension. 5. Diabetes mellitus. 6. Dyslipidemia. 7. Hyponatremia. This patient presented with a mild congestive heart failure exacerbation, probably brought on by her rapid ventricular rate. From a cardiac standpoint, she is hypotensive and I would recommend that she increase the dose of her Coreg to better control her heart rate. We would avoid clonidine since she is hypotensive.We will monitor the patient on telemetry. We would recommend she undergo stress testing during her hospitalization to make sure there is no evidence of significant ischemia. We will follow this patient with you through her hospitalization. DORINDA
[2017-12-17] MEDS ORDERED: Regadenoson 0.4 MG/5 ML SYRINGE ONE (13:02)
[2017-12-17] MEDS: traMADol HCl 50 MG TAB PO PRN ×2 (15:41→23:23)
[2017-12-17 16:27] LABS: Anion Gap 14 mmol/L (10-20); BUN (Urea Nitrogen) 15 mg/dL (9.8-20.1); Calc. Creatinine Clearance 44 mL/min (70-130); Calcium 8.9 mg/dL (7.8-10.44); Carbon Dioxide 22 mmol/L (23-31); Chloride 90 mmol/L (98-107); Estimated GFR-MDRD 52; Glucose 126 mg/dL (83-110); Potassium 3.6 mmol/L (3.5-5.1); Sodium 122 mmol/L (136-145)
--- NOTE | 2017-12-17 16:37 | PDOC.PN ---
- Subjective Encounter Start Date: 12/17/17 Encounter Start Time: 16:31 Ms. Garcia was seen today in follow-up. She says she is breathing better today. She denies chest pain. She still has a poor appetite - Objective Resuscitation Status: Resuscitation Status FULL:Full Resuscitation MAR Reviewed: Yes Vital Signs & Weight: Vital Signs (12 hours) Temp Pulse Resp BP BP Pulse Ox 12/17/17 15:41 120/60 12/17/17 15:40 97.3 F L 93 14 126/60 96 12/17/17 13:10 67 14 129/63 97 12/17/17 13:05 79 14 120/60 94 L 12/17/17 11:40 98.1 F 79 12 113/49 L 91 L 12/17/17 09:01 98/50 L 12/17/17 08:13 97.5 F L 66 12 12/17/17 08:00 97.5 F L 66 12 12/17/17 07:50 97.5 F L 66 12 12/17/17 07:45 97.5 F L 66 12 98/50 L 96 Weight Admit Weight 159 lb 4.8 oz Weight 160 lb 1.6 oz I&O: 12/16/17 12/17/17 12/18/17 06:59 06:59 06:59 Intake Total 500 Output Total 1950 Balance -1450 Result Diagrams: 12/17/17 06:04 12/17/17 16:00 Additional Labs: Accuchecks 12/17/17 12/17/17 12/17/17 13:02 11:44 09:09 POC Glucose 186 H 73 77 12/17/17 12/16/17 07:32 21:25 POC Glucose 77 124 H Phys Exam - Physical Examination HEENT: PERRLA Respiratory: no wheezing, no rales, no rhonchi, clear to auscultation bilateral Cardiovascular: RRR, no significant murmur Gastrointestinal: soft, non-tender, positive bowel sounds Musculoskeletal: no edema vericose veins Dx/Plan (1) Acute on chronic systolic heart failure Code(s): I50.23 - ACUTE ON CHRONIC SYSTOLIC (CONGESTIVE) HEART FAILURE Status : Acute (2) Hyponatremia Code(s): E87.1 - HYPO-OSMOLALITY AND HYPONATREMIA Status: Acute (3) New onset a-fib Code(s): I48.91 - UNSPECIFIED ATRIAL FIBRILLATION Status: Acute Comment: Rate controlled on Coreg.On Anticoagulation per cardiology (4) DM II (diabetes mellitus, type II), controlled Code(s): E11.9 - TYPE 2 DIABETES MELLITUS WITHOUT COMPLICATIONS Status: Chronic Comment: Continue Metformin daily, ISS, ADA - Plan * Acute on chronic heart failure ( systolic)- compensated- she may be a bit hypovolemic * Stress test is in progress, to assess for ischemia * Hyponatremia- ? etiology- her serum sodium was worse today, serum osmolality is low- however urine osmols are pending- will discontinue IV Lasix, and give her some hypertonic solution( gatorade) to drink, while we await the results.. * DM- blood glucose is stable * Hypotension- blood pressure has been a bit low, she may be slightly overdiuresed
[2017-12-17] MEDS: Carvedilol 6.25 MG TAB PO SCH (17:53)
[2017-12-17 18:58] LABS: Osmolality, Urine 305 mOsm/kg (300-900)
[2017-12-17 19:15] LABS: Sodium, Urine 82 mmol/L (Not Available)
[2017-12-17] MEDS ORDERED: Sodium Chloride 0.9% 500 ML IVPB ONE (20:45)
[2017-12-17] MEDS: Simvastatin 20 MG TAB PO SCH (20:46)
[2017-12-17] MEDS: Pramipexole Di-HCl 0.25 MG TAB PO SCH (20:46)
[2017-12-18] MEDS: Ondansetron ODT 4 MG TAB PO PRN ×2 (02:06→10:56)
[2017-12-18 05:30] LABS: Anion Gap 12 mmol/L (10-20); BUN (Urea Nitrogen) 16 mg/dL (9.8-20.1); Calc. Creatinine Clearance 44 mL/min (70-130); Calcium 8.3 mg/dL (7.8-10.44); Carbon Dioxide 25 mmol/L (23-31); Chloride 90 mmol/L (98-107); Estimated GFR-MDRD 51; Glucose 73 mg/dL (83-110); Potassium 3.4 mmol/L (3.5-5.1); Sodium 124 mmol/L (136-145)
[2017-12-18] MEDS: Acetaminophen 325 MG TAB PO PRN ×2 (06:22→20:30)
[2017-12-18] MEDS: traMADol HCl 50 MG TAB PO PRN ×2 (06:22→17:31)
[2017-12-18] MEDS: Docusate 100 MG CAP PO SCH ×2 (08:48→20:08)
[2017-12-18] MEDS: Cyanocobalamin (Vitamin B-12) 1,000 MCG TAB PO SCH (08:48)
[2017-12-18] MEDS: Apixaban 5 MG TAB PO SCH ×2 (08:48→20:08)
[2017-12-18] MEDS: Folic Acid 1 MG TAB PO SCH ×2 (08:48→20:09)
[2017-12-18] MEDS: Hydroxychloroquine Sulfate 200 MG TAB PO SCH ×2 (08:50→20:09)
[2017-12-18] MEDS: Isosorbide Dinitrate 5 MG TAB PO SCH (08:50)
[2017-12-18] MEDS: metFORMIN 500 MG TAB PO SCH ×2 (08:50→16:34)
[2017-12-18] MEDS: Famotidine 20 MG TAB PO SCH (08:52)
[2017-12-18] MEDS: Carvedilol 6.25 MG TAB PO SCH ×2 (08:52→16:33)
[2017-12-18] MEDS: Losartan 25 MG TAB PO SCH ×2 (08:52→20:08)
--- NOTE | 2017-12-18 10:57 | PDOC.PN ---
- Subjective Encounter Start Date: 12/18/17 Encounter Start Time: 10:56 Ms. Garcia was seen today on follow-up of CHF exacerbation, and hyponatremia. She says she feels bad. She has poor appetite, otherwise ok. - Objective Resuscitation Status: Resuscitation Status FULL:Full Resuscitation MAR Reviewed: Yes Vital Signs & Weight: Vital Signs (12 hours) Temp Pulse Resp BP BP Pulse Ox 12/18/17 08:52 126/60 12/18/17 07:50 98.0 F 80 16 12/18/17 07:40 98.0 F 80 16 107/51 L 98 12/18/17 04:34 97.6 F 81 22 H 117/71 99 12/17/17 23:36 98.6 F 74 15 112/53 L 99 Weight Admit Weight 159 lb 4.8 oz Weight 162 lb 1.6 oz I&O: 12/17/17 12/18/17 12/19/17 06:59 06:59 06:59 Intake Total 500 1555 Output Total 1950 600 100 Balance -1450 955 -100 Result Diagrams: 12/17/17 06:04 12/18/17 04:43 Additional Labs: Accuchecks 12/18/17 12/17/17 12/17/17 04:44 20:50 16:50 POC Glucose 84 141 H 142 H 12/17/17 12/17/17 13:02 11:44 POC Glucose 186 H 73 Phys Exam - Physical Examination HEENT: PERRLA Respiratory: no wheezing, no rales, no rhonchi, clear to auscultation bilateral Cardiovascular: RRR, no significant murmur, no rub Gastrointestinal: soft, non-tender, positive bowel sounds Musculoskeletal: no edema Dx/Plan (1) Acute on chronic systolic heart failure Code(s): I50.23 - ACUTE ON CHRONIC SYSTOLIC (CONGESTIVE) HEART FAILURE Status : Acute (2) Hyponatremia Code(s): E87.1 - HYPO-OSMOLALITY AND HYPONATREMIA Status: Acute (3) New onset a-fib Code(s): I48.91 - UNSPECIFIED ATRIAL FIBRILLATION Status: Acute Comment: Rate controlled on Coreg.On Anticoagulation per cardiology (4) DM II (diabetes mellitus, type II), controlled Code(s): E11.9 - TYPE 2 DIABETES MELLITUS WITHOUT COMPLICATIONS Status: Chronic Comment: Continue Metformin daily, ISS, ADA - Plan * Hyponatremia- This is persistent despite giving some fluid back,I suspect this is multifactorial and will take a few days to correct - likely from CHF, volume depletion and poor oral intake. Her urine osmolality is a bit elevated- ? SIADH- Will consult Nephrology and change status to inpatient * CHF exacerbation- await stress test results- Lasix is on hold due to volume depletion * DM- blood glucose is low, Metformin is on hold * HTN-blood pressure is stable
--- NOTE | 2017-12-18 11:32 | PDOC.CTH ---
<Naima Meredith - Last Filed: 12/18/17 11:26> Cardiology Progress Note - Subjective The pt seen and examined. No overnight events. No cardiac complaints. Her code status at this moment is Full code. She is willing to wear LifeVest or AICD placement. She cont. feeling of chronic fatigue. - Objective Vital Signs Temp Pulse Resp BP BP Pulse Ox 12/18/17 08:52 126/60 12/18/17 07:50 98.0 F 80 16 12/18/17 07:40 98.0 F 80 16 107/51 L 98 12/18/17 04:34 97.6 F 81 22 H 117/71 99 12/17/17 23:36 98.6 F 74 15 112/53 L 99 Admit Weight 159 lb 4.8 oz Weight 162 lb 1.6 oz 12/17/17 12/18/17 12/19/17 06:59 06:59 06:59 Intake Total 500 1555 Output Total 1950 600 100 Balance -1450 955 -100 - Physical Examination General/Neuro: alert & oriented x3 Neck: no JVD present Lungs: CTA (diminished at bases) Heart: RRR Abdomen: soft Extremities: other: - Telemetry Telemetry Rhythm: Afib 80s - Labs Result Diagrams: 12/17/17 06:04 12/18/17 04:43 Troponin/CKMB CK-MB (CK-2) 4.2 ng/mL (0-6.6) 12/16/17 16:19 Troponin I 0.098 ng/mL (< 0.028) H 12/16/17 16:19 - Assessment/Plan 1. Acute on chronic Systolic and Diastolic HF - Echo on 11/26/17 showed EF 25-30 % (55% in 01/2017) with grade I diastolic dysfunction. She is Full code and stated she is willing to wear LifeVest and AICD placement if necessary. 2. Paroxysmal Afib - remains in Afib with HR 80s. She is on Coreg and Eliquis 3. Mild CAD - stress test result is pending at this time. 4. HTN - Hypotensive. Stop Isosorbide and decrease Losartan from 50mg BID to 25mg BId. 5. DM type 2 - managed by PCP 6. hx of CVA - stable 7. Hyperlipidemia - on Statin. 8. 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 9. Hyponatremia - this is possible due to SIADH; Nephrology consult was ordered by PCP MAR reviewed Review of Systems - Review of Systems Constitutional: reports: weakness EENTM: reports: no symptoms reported Respiratory: reports: no symptoms reported Cardiac (ROS): reports: no symptoms reported ABD/GI: reports: no symptoms reported : reports: no symptoms reported <Taran Chauhan - Last Filed: 12/18/17 16:44> Cardiology Progress Note - Objective Vital Signs Temp Pulse Resp BP BP Pulse Ox 12/18/17 12:50 97.9 F 80 18 124/60 98 12/18/17 11:24 97.9 F 83 20 95/56 L 97 - Labs Result Diagrams: 12/17/17 06:04 12/18/17 04:43 Troponin/CKMB CK-MB (CK-2) 4.2 ng/mL (0-6.6) 12/16/17 16:19 Troponin I 0.098 ng/mL (< 0.028) H 12/16/17 16:19 - Assessment/Plan Pt. seen and eval. by me. I agree with the A/P by the GERIATRIC PHYSICAL THERAPIST. The Stress test is neg. for ischemia. The EF> 40%. I do not feel that she needs a Life-Vest. I would continue to treat her for CHF due to her diastolic dysfunctiion.
--- NOTE | 2017-12-18 12:01 | NM ---
CARDIAC SPECT: HISTORY: An 87-year-old female with chest pain, coronary artery disease, cardiomyopathy, atrial fibrillation, hypertension, diabetes, and dyslipidemia. TECHNIQUE: A myocardial perfusion scan was performed using the single isotope two-day protocol with 33 millicuri es of technetium 99m sestamibi injected intravenously for stress and rest images. Pharmacologic stre ss with Lexiscan was monitored and interpreted by Dr. Martínez. FINDINGS: A homogeneous tracer distribution is seen in the myocardial segments on stress and rest images withou t fixed or reversible defects. GATED SPECT LVEF: 43% WALL MOTION EXAM: Global hypokinesis. IMPRESSION: No evidence of reversible ischemia. POS: VENKAT
[2017-12-18] MEDS ORDERED: Conivaptan 20 MG in Premix Bag 1 BAG IVPB SCH (18:45)
[2017-12-18] MEDS: Pramipexole Di-HCl 0.25 MG TAB PO SCH (20:09)
[2017-12-18] MEDS: Simvastatin 20 MG TAB PO SCH (20:09)
[2017-12-18] MEDS: SYSTANE GEL EYE DROP 10 ML 10 GM BOT EA EYE SCH (20:09)
--- NOTE | 2017-12-18 21:28 | CON ---
DATE OF CONSULTATION: 12/18/2017 CONSULTING PHYSICIAN: Dr. Marian Coats. REQUESTING PHYSICIAN: Dr. Devi. REASON FOR CONSULTATION: Moderately severe hyponatremia. IMPRESSION: 1. Hyponatremia. 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 2. Systolic congestive heart failure. 3. Fall/unsteady gait. This is likely to be related to patient's chronic hyponatremic state. PLAN: 1. The patient to be placed on anti-ADH treatment; therefore, was to give this patient one dose of V aprisol and monitor her sodium level closely. 2. Increase the protein intake in this patient's diet and will recommend this patient to be on regul ar diet. 3. Further management to be dependent on the clinical course. HISTORY OF PRESENT ILLNESS: This is an 87-year-old female patient who was sent over from [facility] with chest discomfort. Patient initially treated for CHF exacerbation and sent home, but the pat ient represented to the hospital due to sustain clinical deterioration. The patient recuperating at the rehabilitation and had to be sent over with chest pain. Patient on presentation noted with a sod ium level of 124, which gradually increased to 127; however, this has since then gone down to 124 gina pite all the medical maneuvers the team has put in place. As a result of this, decision has been clarice en to involve Renal in the management of this case. PAST MEDICAL HISTORY: Significant for congestive heart failure with EF about 25%-30%, atrial fibrill ation, hypertension, coronary artery disease, status post appendectomy, cholecystectomy, and C-sectio n, diabetes mellitus type 2. FAMILY HISTORY: No family history of kidney disease. SOCIAL HISTORY: No alcohol, no tobacco, no illicit drug use. REVIEW OF SYSTEMS: As documented in the body of the history. Other systems were reviewed and found not to be significantly related to presenting illness. PHYSICAL EXAMINATION: GENERAL: The patient was found not to be in any obvious distress, noted with the following vital sig ns. VITAL SIGNS: Afebrile with temperature 97.9, pulse 80, respiratory 18, O2 saturation 99%, blood pre ssure 124/50. HEENT: Unremarkable. CARDIOVASCULAR: First and second heart sounds were heard. RESPIRATORY: Clear to auscultation. DIGESTIVE: Revealed a benign abdomen. EXTREMITIES: Showed minimal edema. NEUROLOGIC: Alert, oriented. No lateralizing signs. SUMMARY: An 87-year-old female patient with worsening hyponatremia likely in the context of syndrome inappropriate antidiuretic hormone secretion. Thank you for this consultation. We will follow with you.
[2017-12-19 05:23] VITALS: BMI 28.4
[2017-12-19] MEDS: Acetaminophen 325 MG TAB PO PRN ×2 (05:37→21:43)
[2017-12-19 06:11] LABS: Anion Gap 10 mmol/L (10-20); BUN (Urea Nitrogen) 17 mg/dL (9.8-20.1); Calc. Creatinine Clearance 53 mL/min (70-130); Calcium 8.6 mg/dL (7.8-10.44); Carbon Dioxide 26 mmol/L (23-31); Chloride 91 mmol/L (98-107); Estimated GFR-MDRD 64; Glucose 68 mg/dL (83-110); Potassium 3.5 mmol/L (3.5-5.1); Sodium 123 mmol/L (136-145)
[2017-12-19] MEDS: Hydroxychloroquine Sulfate 200 MG TAB PO SCH ×2 (08:46→21:47)
[2017-12-19] MEDS: Carvedilol 6.25 MG TAB PO SCH ×2 (08:46→16:46)
[2017-12-19] MEDS: Cyanocobalamin (Vitamin B-12) 1,000 MCG TAB PO SCH (08:46)
[2017-12-19] MEDS: Losartan 25 MG TAB PO SCH (08:47)
[2017-12-19] MEDS: Apixaban 5 MG TAB PO SCH ×2 (08:47→21:47)
[2017-12-19] MEDS: Folic Acid 1 MG TAB PO SCH ×2 (08:47→21:47)
[2017-12-19] MEDS: metFORMIN 500 MG TAB PO SCH (08:47)
[2017-12-19] MEDS: Timolol 0.5% Ophth Soln 5 ml Bottle EA EYE SCH (08:47)
[2017-12-19] MEDS: Docusate 100 MG CAP PO SCH ×2 (08:51→21:47)
--- NOTE | 2017-12-19 09:18 | PDOC.CTH ---
<Naima Meredith - Last Filed: 12/19/17 09:14> Cardiology Progress Note - Subjective The pt seen and examined. No overnight events. No cardiac complaints. She stated she feels slightly better than yesterday. - Objective Vital Signs Temp Pulse Resp BP Pulse Ox 12/19/17 08:47 74 12/19/17 04:05 98.2 F 74 16 106/53 L 99 Weight 160 lb 8 oz 12/18/17 12/19/17 12/20/17 06:59 06:59 06:59 Intake Total 440 Balance 440 - Physical Examination General/Neuro: alert & oriented x3 Neck: no JVD present Lungs: CTA Heart: other: (irregular) Abdomen: soft Extremities: other: (No edema) - Telemetry Telemetry Rhythm: Afib 80s - Labs Result Diagrams: 12/17/17 06:04 12/19/17 05:36 Troponin/CKMB CK-MB (CK-2) 4.2 ng/mL (0-6.6) 12/16/17 16:19 Troponin I 0.098 ng/mL (< 0.028) H 12/16/17 16:19 - Assessment/Plan 1. Acute on chronic Systolic and Diastolic HF - Stress test showed global hypokinesis with EF 43%. Echo on 11/26/17 showed EF 25-30% (55% in 01/2017) with grade I diastolic dysfunction. 2. Paroxysmal Afib - remains in Afib with HR 80s. She is on Coreg and Eliquis 3. Mild CAD - Stress test on 12/18/17 showed global hypokinesis with EF 43%. 4. HTN - Hypotensive. Stop Isosorbide and decrease Losartan from 50mg BID to 25mg BId. 5. DM type 2 - managed by PCP 6. hx of CVA - stable 7. Hyperlipidemia - on Statin. 8. 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 9. 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 - Received 1st dose of Vaprisol; managed by NephrologyMAR reviewed MAR reviewed Review of Systems - Review of Systems Constitutional: reports: see HPI EENTM: reports: no symptoms reported Respiratory: reports: no symptoms reported Cardiac (ROS): reports: no symptoms reported ABD/GI: reports: no symptoms reported : reports: no symptoms reported Musculoskeletal: reports: no symptoms reported <Taran Chauhan - Last Filed: 12/19/17 18:45> Cardiology Progress Note - Objective Vital Signs Temp Pulse Pulse Pulse Resp BP BP 12/19/17 16:45 98.4 F 77 16 12/19/17 12:25 97.9 F 78 18 12/19/17 09:13 97 94 116/56 L 119/59 L 12/19/17 08:47 74 12/19/17 08:40 97.9 F 90 18 BP BP Pulse Ox Pulse Ox Pulse Ox 12/19/17 16:45 103/57 L 99 12/19/17 12:25 108/56 L 100 12/19/17 09:13 97 100 12/19/17 08:47 12/19/17 08:40 116/54 L 97 Weight 160 lb 8 oz 12/18/17 12/19/17 12/20/17 06:59 06:59 06:59 Intake Total 440 Balance 440 - Labs Result Diagrams: 12/17/17 06:04 12/19/17 05:36 Troponin/CKMB CK-MB (CK-2) 4.2 ng/mL (0-6.6) 12/16/17 16:19 Troponin I 0.098 ng/mL (< 0.028) H 12/16/17 16:19 - Assessment/Plan Pt. seen and eval. by me. She is presently eating dinner. The Na continues to be low, nephrology managing. I agree with the A/P by the CAKE WINDER. Chest clear, irreg./irreg. No edema.
--- NOTE | 2017-12-19 09:43 | PDOC.PN ---
- Subjective Encounter Start Date: 12/19/17 Encounter Start Time: 09:41 Ms. Garcia was seen in follow-up. She does not have any complaints today. She denies feeling short of breath, she denies chest pain. - Objective MAR Reviewed: Yes Vital Signs & Weight: Vital Signs (12 hours) Temp Pulse Resp BP Pulse Ox 12/19/17 08:47 74 12/19/17 04:05 98.2 F 74 16 106/53 L 99 Weight Weight 160 lb 8 oz I&O: 12/18/17 12/19/17 12/20/17 06:59 06:59 06:59 Intake Total 440 Balance 440 Result Diagrams: 12/17/17 06:04 12/19/17 05:36 Additional Labs: Accuchecks 12/19/17 12/18/17 12/18/17 05:57 21:02 15:39 POC Glucose 75 119 H 104 12/18/17 11:30 POC Glucose 90 Phys Exam - Physical Examination HEENT: PERRLA Respiratory: no wheezing, no rales, no rhonchi, clear to auscultation bilateral Cardiovascular: RRR, no significant murmur, no rub Gastrointestinal: soft, non-tender, no distention, positive bowel sounds Musculoskeletal: no edema Dx/Plan (1) Acute on chronic systolic heart failure Code(s): I50.23 - ACUTE ON CHRONIC SYSTOLIC (CONGESTIVE) HEART FAILURE Status : Acute (2) Hyponatremia Code(s): E87.1 - HYPO-OSMOLALITY AND HYPONATREMIA Status: Acute (3) New onset a-fib Code(s): I48.91 - UNSPECIFIED ATRIAL FIBRILLATION Status: Acute Comment: Rate controlled on Coreg.On Anticoagulation per cardiology (4) DM II (diabetes mellitus, type II), controlled Code(s): E11.9 - TYPE 2 DIABETES MELLITUS WITHOUT COMPLICATIONS Status: Chronic Comment: Continue Metformin daily, ISS, ADA - Plan * Acute on chronic systolic heart failure- improved. I suspect she is close to euvolemia * Hyponatremia- discussed with Dr. Coats- her serum sodium dropped after Vaprisol, plan is torepeat urine studies, and re-assess * DM- blood glucose is stable * AFIB- her heart rate is controlled and she is on Eliquis for stroke prophylaxis * Deconditioning- continue PT/OT
[2017-12-19 13:44] LABS: Osmolality, Urine 179 mOsm/kg (300-900)
[2017-12-19 13:54] LABS: Sodium, Urine Less than 20 mmol/L (Not Available)
[2017-12-19] MEDS: traMADol HCl 50 MG TAB PO PRN (13:58)
[2017-12-19] MEDS: SYSTANE GEL EYE DROP 10 ML 10 GM BOT EA EYE SCH (21:46)
[2017-12-19] MEDS: Simvastatin 20 MG TAB PO SCH (21:46)
[2017-12-19] MEDS: Pramipexole Di-HCl 0.25 MG TAB PO SCH (21:46)
[2017-12-20] MEDS: Sodium Chloride 0.9% 1,000 ML IV SCH ×2 (03:39→15:27)
[2017-12-20 05:14] LABS: Hemoglobin 9.5 g/dL (12.0-16.0); Platelet Count 152 thou/uL (130-400)
[2017-12-20 05:25] LABS: Anion Gap 11 mmol/L (10-20); BUN (Urea Nitrogen) 15 mg/dL (9.8-20.1); Calc. Creatinine Clearance 54 mL/min (70-130); Calcium 9.1 mg/dL (7.8-10.44); Carbon Dioxide 27 mmol/L (23-31); Chloride 93 mmol/L (98-107); Estimated GFR-MDRD 65; Glucose 71 mg/dL (83-110); Potassium 3.9 mmol/L (3.5-5.1); Sodium 127 mmol/L (136-145)
--- NOTE | 2017-12-20 07:15 | PRG ---
DATE OF SERVICE: 12/19/2017 The patient was seen and examined with no new complaint. PHYSICAL EXAMINATION: VITAL SIGNS: Temperature 97.9, pulse 78, respiratory rate of 18, O2 sat 99% with a blood pressure 80 /45 to 103/57. HEENT: Unremarkable. CARDIOVASCULAR: First and second heart sounds were heard. RESPIRATORY: Clear to auscultation. DIGESTIVE SYSTEM: Revealed a benign abdomen. EXTREMITIES: No peripheral edema. SKIN: No new gross rash. LYMPHATICS: No peripheral lymphadenopathy. LABORATORY INVESTIGATION: Surprisingly showed a sodium level of 123. A repeat urinalysis with urine chemistry reviewed. ____ 179, and a sodium of less than 20. IMPRESSION: 1. Hyponatremia, which the initial urine chemistry was highly suggestive of syndrome of inappropriat e antidiuretic hormone secretion. The patient received anti-ADH prescription. 2. Labile hemodynamics. PLAN: 1. The initial urine chemistry highly suggestive of SIADH. However, the paradoxical response of thi s patient to anti-ADH prompted the repeat of the urine chemistry which now came back now is in keepin g with hyponatremia., therefore we will start this patient on normal saline and monitor the sodium le raj. 2. The patient's hemodynamics seem to be improved and therefore it very low blood pressure in this p atient, the systolic in the 80s is not acceptable. Therefore, we will prefer a systolic blood pressu re in, 110s to 120s range. 3. Further management to be dependent on the clinical course.
[2017-12-20] MEDS: traMADol HCl 50 MG TAB PO PRN (09:50)
[2017-12-20] MEDS: Docusate 100 MG CAP PO SCH ×2 (09:51→20:51)
[2017-12-20] MEDS: Timolol 0.5% Ophth Soln 5 ml Bottle EA EYE SCH (09:51)
[2017-12-20] MEDS: Hydroxychloroquine Sulfate 200 MG TAB PO SCH ×2 (10:12→20:52)
[2017-12-20] MEDS: Folic Acid 1 MG TAB PO SCH ×2 (10:12→20:51)
[2017-12-20] MEDS: Apixaban 5 MG TAB PO SCH ×2 (10:12→20:52)
[2017-12-20] MEDS: Cyanocobalamin (Vitamin B-12) 1,000 MCG TAB PO SCH (10:12)
[2017-12-20] MEDS: Carvedilol 6.25 MG TAB PO SCH ×2 (10:37→17:00)
[2017-12-20] MEDS: Losartan 25 MG TAB PO SCH ×2 (10:38→20:52)
--- NOTE | 2017-12-20 14:22 | PDOC.CTH ---
<Naima Meredith - Last Filed: 12/20/17 14:20> Cardiology Progress Note - Subjective The pt seen and examined. No overnight events. No cardiac complaints. She stated she feels slightly better today. She walkes 180 feets with PT today. - Objective Vital Signs Temp Pulse Pulse Pulse Resp BP BP 12/20/17 12:00 98.9 F 85 16 12/20/17 09:51 80 12/20/17 08:42 88 95 115/57 L 99/51 L 12/20/17 08:00 98.9 F 85 16 12/20/17 04:00 97.9 F 73 18 12/20/17 03:58 98.6 F 69 16 BP BP BP Pulse Ox Pulse Ox Pulse Ox 12/20/17 12:00 110/60 100 12/20/17 09:51 12/20/17 08:42 99 100 12/20/17 08:00 114/57 L 96 12/20/17 04:00 108/55 L 97 12/20/17 03:58 110/54 L 96 Admit Weight 159 lb 4.8 oz Weight 160 lb 8 oz 12/19/17 12/20/17 12/21/17 06:59 06:59 06:59 Intake Total 440 1113 250 Output Total 300 Balance 440 813 250 - Physical Examination General/Neuro: alert & oriented x3 Neck: no JVD present Lungs: CTA (diminished at bases) Heart: other: (irregular) Abdomen: soft Extremities: other: (No edema) - Telemetry Telemetry Rhythm: Afib with LBBB 80s - Labs Result Diagrams: 12/20/17 04:37 12/20/17 04:37 Troponin/CKMB CK-MB (CK-2) 4.2 ng/mL (0-6.6) 12/16/17 16:19 Troponin I 0.098 ng/mL (< 0.028) H 12/16/17 16:19 - Assessment/Plan 1. Acute on chronic Systolic and Diastolic HF - Stable with current medication. Stress test showed global hypokinesis with EF 43%. Echo on 11/26/17 showed EF 25-30% (55% in 01/2017) with grade I diastolic dysfunction. 2. Paroxysmal Afib - remains in Afib with HR 80s. She is on Coreg and Eliquis 3. Mild CAD - Stress test on 12/18/17 showed global hypokinesis with EF 43%. 4. HTN - mildy Hypotensive. cont. to monitor. 5. DM type 2 - managed by PCP 6. hx of CVA - stable 7. Hyperlipidemia - on Statin. 8. 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 Stable with pureed diet. 9. 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 - 127 today from 123 yesterday; managed by NephrologyMAR reviewed MAR reviewed Review of Systems - Review of Systems Constitutional: reports: see HPI EENTM: reports: no symptoms reported Respiratory: reports: no symptoms reported Cardiac (ROS): reports: no symptoms reported ABD/GI: reports: no symptoms reported : reports: no symptoms reported Musculoskeletal: reports: no symptoms reported <Taran Chauhan - Last Filed: 12/20/17 17:27> Cardiology Progress Note - Objective Vital Signs Temp Pulse Pulse Pulse Resp BP BP 12/20/17 12:00 98.9 F 85 16 12/20/17 09:51 80 12/20/17 08:42 88 95 115/57 L 99/51 L 12/20/17 08:00 98.9 F 85 16 BP BP Pulse Ox Pulse Ox Pulse Ox 12/20/17 12:00 110/60 100 12/20/17 09:51 12/20/17 08:42 99 100 12/20/17 08:00 114/57 L 96 Admit Weight 159 lb 4.8 oz Weight 160 lb 8 oz 12/19/17 12/20/17 12/21/17 06:59 06:59 06:59 Intake Total 440 1113 250 Output Total 300 Balance 440 813 250 - Labs Result Diagrams: 12/20/17 04:37 12/20/17 04:37 Troponin/CKMB CK-MB (CK-2) 4.2 ng/mL (0-6.6) 12/16/17 16:19 Troponin I 0.098 ng/mL (< 0.028) H 12/16/17 16:19 - Assessment/Plan pt. seen and ebval. by me. I agree with the A/P by the BIOMEDICAL ENGINEERING PROFESSOR. She is feeling better and the Na is improving. Cardiac status is stable. She does not meet the requirements for an AICD or Life-vest at this time. Chest clear. i will sign off. She will need to f/u with me in the next 2-4 weeks.
[2017-12-20] MEDS: Acetaminophen 325 MG TAB PO PRN ×2 (15:26→20:50)
[2017-12-20] MEDS: Pramipexole Di-HCl 0.25 MG TAB PO SCH (20:52)
[2017-12-20] MEDS: Simvastatin 20 MG TAB PO SCH (20:52)
[2017-12-20] MEDS: SYSTANE GEL EYE DROP 10 ML 10 GM BOT EA EYE SCH (20:53)
--- NOTE | 2017-12-20 23:16 | PRG ---
The patient was seen and examined, seems to be doing better, noted with following vital signs. PHYSICAL EXAMINATION: VITAL SIGNS: Afebrile with temperature 98.8, pulse 84, respiratory rate of 16, O2 sat 100%, blood pr essure 101/54. HEENT: Unremarkable with moist oral mucosa. NECK: Supple. No conjunctival injection or icterus. CARDIOVASCULAR: First and second heart sounds were heard. RESPIRATORY: Clear to auscultation. DIGESTIVE: Revealed a benign abdomen with positive bowel sounds. EXTREMITIES: No peripheral edema. SKIN: No new gross rash. LYMPHATICS: No peripheral lymphadenopathy. LABORATORY INVESTIGATION: Showed sodium that has gone up to 127. IMPRESSION: Hyponatremia. This is likely in the context of her possible hypovolemia. PLAN: 1. We would continue with current IV fluid resuscitation and monitor the sodium level accordingly. 2. Continue with high-protein diet.
[2017-12-21] MEDS: Acetaminophen 325 MG TAB PO PRN (01:41)
[2017-12-21] MEDS: Sodium Chloride 0.9% 1,000 ML IV SCH (04:15)
[2017-12-21] MEDS: traMADol HCl 50 MG TAB PO PRN (05:01)
[2017-12-21 06:08] LABS: Anion Gap 7 mmol/L (10-20); BUN (Urea Nitrogen) 13 mg/dL (9.8-20.1); Calc. Creatinine Clearance 61 mL/min (70-130); Calcium 8.3 mg/dL (7.8-10.44); Carbon Dioxide 26 mmol/L (23-31); Chloride 102 mmol/L (98-107); Estimated GFR-MDRD 75; Glucose 69 mg/dL (83-110); Potassium 3.9 mmol/L (3.5-5.1); Sodium 131 mmol/L (136-145)
[2017-12-21] MEDS: Hydroxychloroquine Sulfate 200 MG TAB PO SCH (09:13)
[2017-12-21] MEDS: Losartan 25 MG TAB PO SCH (09:13)
[2017-12-21] MEDS: Carvedilol 6.25 MG TAB PO SCH (09:13)
[2017-12-21] MEDS: Docusate 100 MG CAP PO SCH (09:14)
[2017-12-21] MEDS: Cyanocobalamin (Vitamin B-12) 1,000 MCG TAB PO SCH (09:14)
[2017-12-21] MEDS: Apixaban 5 MG TAB PO SCH (09:14)
[2017-12-21] MEDS: Folic Acid 1 MG TAB PO SCH (09:15)
[2017-12-21] MEDS: Timolol 0.5% Ophth Soln 5 ml Bottle EA EYE SCH (09:15)
--- NOTE | 2017-12-21 11:27 | PDOC.PN ---
- Subjective Encounter Start Date: 12/21/17 Encounter Start Time: 11:26 Ms. Garica was seen today in follow-up. She says she had some problems with restless leg syndrome, but otherwise ok. - Objective MAR Reviewed: Yes Vital Signs & Weight: Vital Signs (12 hours) Temp Pulse Resp BP BP BP Pulse Ox 12/21/17 09:15 91 128/66 12/21/17 09:13 128/66 12/21/17 07:31 100 12/21/17 07:15 97.8 F 91 18 128/66 99 12/21/17 04:44 97.7 F 80 16 134/64 96 12/21/17 00:00 98.0 F 86 18 115/59 L 98 Weight Admit Weight 159 lb 4.8 oz Weight 161 lb 1.6 oz I&O: 12/20/17 12/21/17 12/22/17 06:59 06:59 06:59 Intake Total 1113 1960 Output Total 300 Balance 813 1960 Result Diagrams: 12/20/17 04:37 12/21/17 05:12 Additional Labs: Accuchecks 12/21/17 12/21/17 12/20/17 06:23 04:59 20:48 POC Glucose 148 H 68 L 104 Phys Exam - Physical Examination HEENT: PERRLA, sclera anicteric Respiratory: no wheezing, no rales, no rhonchi, clear to auscultation bilateral Cardiovascular: RRR, no significant murmur, no rub Gastrointestinal: soft, non-tender, positive bowel sounds Musculoskeletal: no edema Neurological: non-focal Dx/Plan (1) Acute on chronic systolic heart failure Code(s): I50.23 - ACUTE ON CHRONIC SYSTOLIC (CONGESTIVE) HEART FAILURE Status : Acute (2) Hyponatremia Code(s): E87.1 - HYPO-OSMOLALITY AND HYPONATREMIA Status: Acute (3) New onset a-fib Code(s): I48.91 - UNSPECIFIED ATRIAL FIBRILLATION Status: Acute Comment: Rate controlled on Coreg.On Anticoagulation per cardiology (4) DM II (diabetes mellitus, type II), controlled Code(s): E11.9 - TYPE 2 DIABETES MELLITUS WITHOUT COMPLICATIONS Status: Chronic Comment: Continue Metformin daily, ISS, ADA - Plan * Acute on chronic diastolic heart failure- improved * Hyponatremia- serum sodium 131 * She is stable for discharge home. .
[2017-12-21 17:17] VITALS: BP 117/64; TEMP 98.1
--- NOTE | 2017-12-21 22:42 | DIS ---
DATE OF ADMISSION: 12/19/2017 DATE OF DISCHARGE: 12/21/2017 PRIMARY CARE PHYSICIAN: Cesilia Crystal M.D. DISCHARGE DISPOSITION: Home with [facility]. DISCHARGE DIAGNOSES: 1. Acute on chronic systolic heart failure. 2. Hyponatremia secondary to volume depletion, resolved. 3. Chronic atrial fibrillation. 4. Hypertension. 5. History of coronary artery disease. DISCHARGE MEDICATIONS: Include simvastatin 20 mg daily, Systane eyedrops p.r.n., timolol eyedrops in each eye daily, pramipexole 0.25 mg q.p.m., methotrexate 15 mg once a week, losartan 25 mg twice eduarda ly, Plaquenil 200 mg twice a day, Lasix 40 mg every other day to start on Saturday , folic acid 1 mg twice a day, vitamin B12 of 500 mcg daily vitamin D3 of 5000 units daily, Coreg 6.25 mg twice a da y, biotin 10,000 mcg daily, and Eliquis 5 mg twice a day. PROCEDURES DONE DURING ADMISSION: The patient had a nuclear stress test, which was negative for any reversible ischemia. CODE STATUS: FULL CODE. ALLERGIES: No known drug allergies. HOSPITAL COURSE: Ms. Garcia is a pleasant 87-year-old female who was admitted to the hospital with complaints of chest discomfort and elevated heart rate. She was sent over from the rehabilitation [facility] and she was found to have acute on chronic systolic heart failure and she was diuresed with go od improvement in her respiratory status. However, it was noted that her serum sodium had dropped to a low of 122. This was initially thought to be due to syndrome of inappropriate antidiuretic hormon e secretion, but however, after repeat lab work were performed, it was primarily due to volume deplet ion. She was evaluated by Nephrology for this. She was a bit over diuresed then we gave her fluid b ack. She improved with this, was seen by Cardiology to evaluate the systolic heart failure. She had a nuclear stress test, which was negative for signs of ischemia. Her heart rate remained stable wit h regards to her atrial fibrillation. She was subsequently able to be discharged home with home [facility] and to have a close outpatient followup. Please note that metformin was on hold because during he r hospital stay, her serum glucose was actually ranging between 60-130s without medication and she wa s also taken off of Imdur due to low blood pressure and losartan dose was decreased. Clonidine was a lso discontinued due to low blood pressure. These can be restarted at the discretion of her primary care physician once she has been seen in followup.
--- NOTE | 2017-12-24 13:48 | STRESS ---
Acquisition Time: 2017-12-17 13:59:38 Total Exercise Time: 00:01:00 Test Indications: CHEST PAIN Medications: Protocol: LEXISCAN Max HR: 093 BPM 70% of Pred: 132 BPM Max BP: 136/058 mmHG Max Work Load: 1.0 METS THE PATIENT WAS INJECTED WITH LEXISCAN. SHE DID NOT DEVELOP CHEST PAIN. THERE WAS UNDERLYING LEFT BUNDLE BRANCH BLOCK. NO SIGNIFICANT CHANGES. AWAIT NUCLEAR IMAGES FOR DEFINITIVE DIAGNOSIS. Confirmed by JALEN MAURICIO ([id number]), sound editor RAJESH GLOVER ([id number] on 12/24/2017 1:48:34 PM Referred By: MD Maya MAURICIO Confirmed By:JALEN MAURICIO
== END 2017-12-21 15:14 | disposition home or self-care (01) | DRG 292 ==
LOC: ERS 15:59 → 2SW 18:59 → OBSVTOIN 12-18 10:42 → 2NO 12-18 12:51
PROVIDERS: ADMIT Internal Medicine; ATTEND Internal Medicine
DX: I11.0 Hypertensive heart disease with heart failure (principal); E87.1 Hypo-osmolality and hyponatremia; I50.23 Acute on chronic systolic (congestive) heart failure; I48.2 Chronic atrial fibrillation; I25.10 Atherosclerotic heart disease of native coronary artery without angina pectoris; E11.9 Type 2 diabetes mellitus without complications; I42.8 Other cardiomyopathies; I48.0 Paroxysmal atrial fibrillation; E78.5 Hyperlipidemia, unspecified; Z90.49 Acquired absence of other specified parts of digestive tract; Z90.710 Acquired absence of both cervix and uterus; Z79.01 Long term (current) use of anticoagulants; Z79.84 Long term (current) use of oral hypoglycemic drugs; Z79.899 Other long term (current) drug therapy
CPT/HCPCS: 36415; 36416; 71045; 78452; 80048; 82330; 82550; 82553; 82803; 83880; 83930; 83935; 84300; 84484; 85014; 85018; 85025; 85049; 85610; 85730; 93005; 93017; 93798; 96374; A4216; A9500; G8978-GP-CK; G8979-GP-CK; G8980-GP-CK; G8987-GO-CJ; G8988-GO-CJ; G8989-GO-CJ; G8996-GN-CK; G8997-GN-CJ; J1610; J1940; J2785; J7050; Q0162